=== PATIENT | male | born 1970 | race Caucasian/White ===

== ENCOUNTER 2018-07-15 08:46 | Emergency (ER) | payer BC, SELFPAY ==
[2018-07-15 08:47] VITALS: BP 138/91; PULSE 89; RESP 18; TEMP 36.6; O2SAT 96; BMI 36.6
--- NOTE | 2018-07-15 08:55 | RAD_ITS ---
STUDY: X-RAY - LEFT KNEE REASON FOR EXAM: Male, 48 years old. Redness, swelling TECHNIQUE: 4 view(s) of the knee. COMPARISON: None. FINDINGS: Normal visualized distal femur. Normal visualized proximal tibia and fibula. Normal proximal tibiofibular articulation. Degenerative spurring and slight narrowing at the medial femorotibial compartment. Degenerative spurring at the lateral femorotibial compartment. Mild degenerative spurring at the patellofemoral articulation. Prepatellar and infrapatellar subcutaneous edema. RAD/Knee 4 or More Views IMPRESSION: Anterior subcutaneous edema. Degenerative changes of the knee. Electronically Signed: Suleiman Valenzuela DO at 9:36 EST Tel [phone], Service support ,
[2018-07-15 08:57] VITALS: BP 138/91; PULSE 89; RESP 16; TEMP 36.7; O2SAT 96
--- NOTE | 2018-07-15 08:57 | ED.VISSUMM ---
- ER Visit Summary Date of Service: 07/15/18 Chief Complaint: Left knee pain and swelling History of Present Illness: The patient is a 48 M patient presents with left knee pain and swelling. He was working yesterday when he crouched and then felt pain on the left knee. He denies hitting it or any trauma to the area. He denies sliding or moving on the patella. The pain got worse throughout the night and was worse this morning. He tried Aleve yesterday without any relief. He denies any history of any knee surgeries. This pain is worse with movement. He denies any fevers. Physical Examination: Vital signs reviewed. Left knee exam reveals diffuse swelling of the left knee. It is mildly erythematous and warm to touch. There is no pain with small arc range of motion. He has tenderness diffusely over the patellar area. He has 2+ DP pulses. Test Results: Knee x-ray shows subcutaneous edema with degenerative changes. There is no large effusion Emergency Department Course and Treatment: I feel the patient likely has a prepatellar bursitis. He has no large joint effusion. He has no pain with small arc range of motion. I do not feel that this is a septic arthritis. The patient will be treated with Keflex and naproxen for home. He will ice judiciously. He will follow-up with his PCP Treatment Plan: [] Disposition: Discharge Impression: Left prepatellar bursitis This note was generated with [employer] dictation software. It may contain incorrect words, spelling, and punctuation that were not noted in review of the chart prior to signing ED Disposition - Plan for ED Patient: Referrals: Ayush Paz MD [Primary Care Provider] -
[2018-07-15] MEDS: HYDROcodone Bitartrate/Apap 5/325 Tablet PO (09:01)
--- NOTE | 2018-07-15 09:42 | ED.DEP ---
ED Disposition - Plan for ED Patient: Disposition: Home or Assisted Living Instructions: ED Bursitis Prescriptions: Cephalexin [Keflex] 500 mg PO Q6 #40 cap Naproxen [Naprosyn] 500 mg PO BID PRN #20 tab Referrals: Ayush Paz MD [Primary Care Provider] -
[2018-07-15 09:52] VITALS: BP 135/78; PULSE 80; RESP 16; O2SAT 98
== END 2018-07-15 09:58 | disposition home or self-care (01) ==
PROVIDERS: Emergency Provider Emergency Medicine; Family Provider Family Medicine; PCP Family Medicine
DX: M70.42 Prepatellar bursitis, left knee (principal); Y93.9 Activity, unspecified; I10 Essential (primary) hypertension; Z79.899 Other long term (current) drug therapy
CPT/HCPCS: 73564; 99283

== ENCOUNTER 2018-07-18 15:39 | Inpatient (IN) | payer BC, SELFPAY ==
[2018-07-18 15:40] VITALS: BP 136/85; PULSE 97; RESP 18; TEMP 37.1; O2SAT 97; BMI 36.6
--- NOTE | 2018-07-18 16:18 | ED.VISSUMM ---
- ER Visit Summary Date of Service: 07/18/18 Chief Complaint: Right knee redness and swelling History of Present Illness: The patient is a 48 M history of hypertension. Not diabetic. 4-day history of right knee redness and swelling. Was seen in the ER started on Keflex on Tuesday. He states is been taken it but is getting worse in spite of antibiotic therapy. Subjectively has had fever and chills but no documented temperature. He is able to bend his left knee but not complete flexion due to the amount of swelling. He is never had left knee surgery. He has had fluid on his knee before. He has had cellulitis in the left lower leg before. Physical Examination: Middle-aged male no acute distress vital signs stable afebrile. HEENT exam unremarkable. Neck nontender no lymphadenopathy. Lungs clear to auscultation bilaterally. Heart regular rate and rhythm no murmur soft and nontender. Extremities moves all 4. He has large swelling, redness and warmth to the left anterior knee. Amount of swelling. No significant pain. He has full extension. Distally he has some redness on the proximal lower leg. DP pulses intact. Left foot is neurovascular intact with normal flexion-extension touch sensation and motor strength. The left inguinal area there is no lymphadenopathy. There is no streaking up into the thigh. Neurologically is awake alert with no focal motor or sensory deficits. Test Results: Patient had a prior left knee x-ray which showed degenerative changes and edema. CBC normal with a white count of 9. No bands. BMP normal. Emergency Department Course and Treatment: Blood cultures obtained. Started on IV Zosyn and bank. Patient has failed outpatient therapy with Keflex. I will speak to the hospitalist about admission. Treatment Plan: Patient started on IV vancomycin and Zosyn. I have already spoken to both the orthopedic physician on-call and the hospitalist. Hospitalist will come down to admit the patient. Disposition: Admission Impression: Acute left knee cellulitis Failed outpatient antibiotic therapy This note was generated with [employer] dictation software. It may contain incorrect words, spelling, and punctuation that were not noted in review of the chart prior to signing ED Disposition - Plan for ED Patient: Referrals: Ayush Paz MD [Primary Care Provider] -
--- NOTE | 2018-07-18 16:24 | ED.DCSUM_ITS ---
- ER Visit Summary Date of Service: 07/18/18 Chief Complaint: Right knee redness and swelling History of Present Illness: The patient is a 48 M history of hypertension. Not diabetic. 4-day history of right knee redness and swelling. Was seen in the ER started on Keflex on Tuesday. He states is been taken it but is getting worse in spite of antibiotic therapy. Subjectively has had fever and chills but no documented temperature. He is able to bend his left knee but not complete flexion due to the amount of swelling. He is never had left knee surgery. He has had fluid on his knee before. He has had cellulitis in the left lower leg before. Physical Examination: Middle-aged male no acute distress vital signs stable afebrile. HEENT exam unremarkable. Neck nontender no lymphadenopathy. Lungs clear to auscultation bilaterally. Heart regular rate and rhythm no murmur soft and nontender. Extremities moves all 4. He has large swelling, redness and warmth to the left anterior knee. Amount of swelling. No significant pain. He has full extension. Distally he has some redness on the proximal lower leg. DP pulses intact. Left foot is neurovascular intact with normal flexion-extension touch sensation and motor strength. The left inguinal area there is no lymph adenopathy. There is no streaking up into the thigh. Neurologically is awake alert with no focal motor or sensory deficits. Test Results: Patient had a prior left knee x-ray which showed degenerative changes and edema. CBC normal with a white count of 9. No bands. BMP normal. Emergency Department Course and Treatment: Blood cultures obtained. Started on IV Zosyn and bank. Patient has failed outpatient therapy with Keflex. I will speak to the hospitalist about admission. Treatment Plan: Patient started on IV vancomycin and Zosyn. I have already spoken to both the orthopedic physician on-call and the hospitalist. Hospitalist will come down to admit the patient. Disposition: Admission Impression: Acute left knee cellulitis Failed outpatient antibiotic therapy This note was generated with [employer] dictation software. It may contain incorrect words, spelling, and punctuation that were not noted in review of the chart prior to signing ED Disposition - Plan for ED Patient: Referrals: Ayush Paz MD [Primary Care Provider] -
[2018-07-18 17:00] VITALS: BP 137/91; PULSE 79; RESP 16; TEMP 36.8; O2SAT 98
[2018-07-18 17:16] LABS: Absolute Lymphocyte Count 0.87 X10^3/ul (0.83-4.51); Absolute Neutrophil Count 7.6 X10^3/uL (2.0-7.7); Basophil# 0.03 X10^3/uL; Basophil% 0.3 % (0-1); Eosinophil# 0.19 X10^3/uL; Hematocrit 40.7 % (40-54); Hemoglobin 13.5 g/dl (13.0-16.5); Lymphocyte # 0.87 X10^3/ul (4.0); Lymphocyte % 9.1 % (19-41); Mean Corp Hgb Conc 33.2 g/gl (32-36); Mean Corpuscular Hgb 29.8 pg (27.0-32.0); Mean Corpuscular Volume 89.8 fL (80-94); Mean Platelet Vol. 8.7 fl (6.2-12.0); Monocyte# 0.84 X10^3/uL; Monocyte% 8.8 % (0-10); Neutrophil # 7.58 X10^3/uL (2.7-7.7); Neutrophil % 79.3 % (47-70); Platelet Count 202 K/mm3 (150-450); RBC Distribution Width CV 12.5 % (11.6-14.6); RBC Distribution Width SD 40.7 fl (35.1-43.9); Red Blood Count 4.53 M/mm3 (4.6-6.2); White Blood Count 9.6 K/mm3 (4.4-11.0)
[2018-07-18 17:18] LABS: POSITIVE COUNT NO; POSITIVE DIFFERENTIAL NO; POSITIVE MORPHOLOGY NO
[2018-07-18 17:27] LABS: Anion Gap 11 (5-15); BUN 16 mg/dL (7-18); BUN/Creat Ratio 17.4 RATIO (10-20); Calcium,Total 8.9 mg/dL (8.5-10.1); Chloride 102 mmol/L (98-107); Creatinine, Serum 0.92 mg/dL (0.70-1.30); EST Glomerular Filtration Rate 93 mL/min (>60); Est Glom Filt Rate - Afr Amer 112 mL/min (>60); Estimated Creatinine Clearance 99.18 ml/min; Glucose 99 mg/dL (74-106); Potassium 3.5 mmol/L (3.5-5.1); Sodium Level 140 mmol/L (136-145)
--- NOTE | 2018-07-18 18:37 | HP.PCM_ITS ---
<Ramakrishna Rincon - Last Filed: 07/18/18 18:31> Problem List (1) Bursitis, knee Status: Acute (2) Cellulitis Status: Acute (3) Obesity Status: Acute History of Present Illness Date of Admission: 07/18/18 Chief Complaint: left knee swelling The patient is a 48 year old M with pmhx of prior LLE cellulitis, obesity, HTN, who presented to the ER with c/o left knee swelling. This began on Tuesday, spontaneously. He denies any trauma. He had increased swelling, erythema, pain in his left knee. He presented to the emergency room on Tuesday had a knee x- ray that demonstrated subcutaneous edema, he was placed on Keflex and discharged home. The swelling has worsened at home with increased pain redness. The erythema has started spreading proximally and distally from his knee. There are no open areas and no drainage. He has noted some chills at home. Currently in the emergency room without fever, no leukocytosis. He has no numbness or tin gling in the affected extremity. He is able to ambulate without difficulty. He does report that he has had cellulitis in this leg prior-he does not know what type of bacteria he had. Orthopedics, Dr. Haji, was called by the emergency room physicians. [] Past Medical History Allergies adhesive tape Allergy (Verified 07/18/18 15:42) Rash lisinopril Adverse Reaction (Verified 07/18/18 15:42) Other Home Medications: Ambulatory Orders Medication Instructions Recorded Losartan/Hydrochlorothiazide 1 tablet PO DAILY 05/17/17 [Losartan-Hctz 50-12.5 mg Tab] Naproxen [Naprosyn] 500 mg PO BID PRN #20 tab 07/15/18 Cephalexin [Keflex] 500 mg PO 4X/DAY 07/18/18 Surgical History: - - sinus polypectomy Psychiatric History: No pertinent psych hx Lives: Spouse/ Significant Other Smoking Status: Never smoker Tobacco Use: Non-smoker Alcohol: Rare Drugs: None - *Family History Maternal History Items: Diabetes Paternal History Items: Cancer, Diabetes Review of Systems Constitutional: Reports: Chills. Denies: Fever, Weight Change HEENT: Denies: Head Aches, Sinus Congestion, Sinus Drainage Cardiovascular: Denies: Chest Pain, Palpitations Respiratory: Denies: Cough, Shortness of breath at rest, Sputum production Gastrointestinal: Denies: Abdominal Pain, Nausea, Vomiting Genitourinary: Denies: Dysuria Musculoskeletal: Reports: Joint swelling, Joint Tenderness. Denies: Joint Pain Skin: Reports: Rash. Denies: Wounds Neurological: Denies: Numbness, Tingling, Focal weakness Psychiatric: Denies: Anxiety, Depression, Homicidal Ideations, Suicidal Ideations Hematologic/ Lymphatic: Denies: Easy Bruising, Easy Bleeding VTE Information - Inpt Only VTE Present on Admission: No VTE Mechan Device Prophylaxis: None VTE Pharm Prophylaxis ordered?: Yes Patient Problems: Active and Suspected Problems Bursitis, knee (Acute) Cellulitis (Acute) Obesity (Acute) Left knee cellulitis (Acute) - Physical Exam General: Alert, Oriented x3, Cooperative HEENT: Atraumatic, PERRLA, EOMI, Normocephalic Neck: Supple, No JVD, Negative Carotid Bruits Lungs: Clear to auscultation, Normal air movement Cardiovascular: Regular rate, No murmurs Abdomen: Bowel Sounds Present, Soft, Non Tender Extremities: No edema, Capillary Refill Less than 3 Seconds Skin: No breakdown, Rash Present Musculoskeletal: - - Left knee swollen, tender, erythematous, with cellulitic changes spreading proximally and distally from the knee. No lymphangitis noted at this time. Neurological: Cranial nerves II-XII grossly intact Psych/Mental Status: Normal Affect, Appropriate, Alert and oriented to time, place, person, mood and affect Vital Signs Temp Pulse Resp BP Pulse Ox 98.3 F 79 16 137/91 H 98 07/18/18 17:00 07/18/18 17:00 07/18/18 17:00 07/18/18 17:00 07/18/18 17:00 Oxygen Delivery Method Room Air Weight: 255 lb Body Mass Index (BMI) 36.6 Laboratory Tests Past 24 Hrs 07/18/18 07/18/18 16:59 16:59 WBC 9.6 RBC 4.53 L Hgb 13.5 Hct 40.7 MCV 89.8 MCH 29.8 MCHC 33.2 RDW 12.5 RDW Differential 40.7 Plt Count 202 MPV 8.7 Immature Gran % (Auto) 0.500 Neut % (Auto) 79.3 H Lymph % (Auto) 9.1 L [place] % (Auto) 8.8 Eos % (Auto) 2.0 Baso % (Auto) 0.3 Absolute Neuts (auto) 7.6 Absolute Lymphs (auto) 0.87 Total Counted Not Reportable Sodium 140 Potassium 3.5 Chloride 102 Carbon Dioxide 27.0 Anion Gap 11 BUN 16 Creatinine 0.92 Estim Creat Clear Calc 99.18 Est GFR (MDRD) Af Amer 112 Est GFR (MDRD) Non-Af 93 BUN/Creatinine Ratio 17.4 Glucose 99 Calcium 8.9 Assessment/Plan All Active Problems Bursitis, knee (Acute) Cellulitis (Acute) Obesity (Acute) Left knee cellulitis (Acute) 1. Acute bursitis left knee, concern for underlying septic arthritis, with surrounding cellulitis - failed Keflex. No trauma hx. No open areas or draingage. Given Vanc/Zosyn in ER. Continue Zosyn. MRSA screen. Blood culture pending. Check CRP/ESR. Consult ortho. Demarcated. No fever/leukocytosis. Xray from tuesday with subcutaneous edema. Hx cellulitis ipsilateral LE. 2. HTN - stable 3. Obesity - dietary eval. DVT ppx: lovenox This patient was seen by Ramakrishna Rincon PA-C under the supervision of Dr. Carney. <Freddy Carney - Last Filed: 07/18/18 20:44> Problem List (1) Left knee cellulitis Status: Acute (2) Bursitis, knee Status: Acute (3) Cellulitis Status: Acute (4) Obesity Status: Acute History of Present Illness The patient is a 48 year old M history of left knee soft tissue injury while playing baseball about a year ago but no procedure came to ED with left knee swelling, pain, redness consistent with left knee cellulitis. Patient came to ED on past Tuesday and was sent home on Keflex. This did not improve and got more painful, difficulty in moving left knee. Patient had some chills but denies any fever. [] Past Medical History Allergies adhesive tape Allergy (Verified 07/18/18 15:42) Rash lisinopril Adverse Reaction (Verified 07/18/18 15:42) Other - Physical Exam General: Alert, Oriented x3, Cooperative HEENT: Atraumatic, PERRLA, EOMI, Normocephalic Neck: Supple, No JVD, Negative Carotid Bruits Lungs: Clear to auscultation, Normal air movement Cardiovascular: Regular rate, No murmurs Abdomen: Bowel Sounds Present, Soft, Non Tender Extremities: No edema, Capillary Refill Less than 3 Seconds, Peripheral Pulses Normal Skin: No rashes, No breakdown, Rash Present Musculoskeletal: No Tenderness to Palpation of Joints or Extremities, - - Left knee swollen, tender, erythematous, with cellulitic changes spreading proximally and distally from the knee. No lymphangitis noted at this time. Erythema and swelling is present on both medial and lateral aspect also Lymphatic: No Cervical, Supraclavicular, or Inguinal Adenopathy Neurological: Cranial nerves II-XII grossly intact, Deep Tendon Reflexes 2+/4 and Symmetrical, Neuro grossly intact Psych/Mental Status: Normal Affect, Appropriate Vital Signs Temp Pulse Resp BP Pulse Ox 98.2 F 79 16 130/71 H 96 07/18/18 19:00 07/18/18 19:00 07/18/18 19:00 07/18/18 19:00 07/18/18 19:00 Oxygen Delivery Method Room Air Weight: 254 lb 3.088 oz Body Mass Index (BMI) 36.4 Laboratory Tests Past 24 Hrs 07/18/18 07/18/18 07/18/18 16:59 16:59 16:59 WBC 9.6 RBC 4.53 L Hgb 13.5 Hct 40.7 MCV 89.8 MCH 29.8 MCHC 33.2 RDW 12.5 RDW Differential 40.7 Plt Count 202 MPV 8.7 Immature Gran % (Auto) 0.500 Neut % (Auto) 79.3 H Lymph % (Auto) 9.1 L [place] % (Auto) 8.8 Eos % (Auto) 2.0 Baso % (Auto) 0.3 Absolute Neuts (auto) 7.6 Absolute Lymphs (auto) 0.87 Total Counted Not Reportable ESR 59 H Sodium 140 Potassium 3.5 Chloride 102 Carbon Dioxide 27.0 Anion Gap 11 BUN 16 Creatinine 0.92 Estim Creat Clear Calc 99.18 Est GFR (MDRD) Af Amer 112 Est GFR (MDRD) Non-Af 93 BUN/Creatinine Ratio 17.4 Glucose 99 Calcium 8.9 C-React Prot Ext Range 07/18/18 16:59 WBC RBC Hgb Hct MCV MCH MCHC RDW RDW Differential Plt Count MPV Immature Gran % (Auto) Neut % (Auto) Lymph % (Auto) [place] % (Auto) Eos % (Auto) Baso % (Auto) Absolute Neuts (auto) Absolute Lymphs (auto) Total Counted ESR Sodium Potassium Chloride Carbon Dioxide Anion Gap BUN Creatinine Estim Creat Clear Calc Est GFR (MDRD) Af Amer Est GFR (MDRD) Non-Af BUN/Creatinine Ratio Glucose Calcium C-React Prot Ext Range 150.00 H Assessment/Plan This patient was seen in conjunction with Ramakrishna ROMERO. I have independently interviewed and examined the patient and reviewed pertinent history, examination findings, laboratory and plan of management. I have reviewed the note and agree with the documented findings with the few additional points. In brief, patient is admitted with left knee swelling, pain, redness consistent with left knee cellulitis and prepatellar bursitis. Patient came to ED on past Tuesday and was sent home on Keflex. Patient is able to flex knee about 30 degree. patient has had started on Vanco Zosyn in ER and zosyn is being continued. Recent nasal screen is ordered. Orthopedic surgery consult as it was at a point not safe to do left knee arthrocentesis for concern of getting skin and soft tissue infection inside the joint. Orthopedic surgeon Dr. Haji was consulted by ER physician Dr. Gutierrez. Patient denies history of diabetes mellitus type 2 I have discussed my assessment with Ramakrishna ROMERO and orders have been reviewed. Code Visit Inpatient E&M: 94594 Init Hosp L3
[2018-07-18 19:00] VITALS: BP 130/71; PULSE 79; RESP 16; TEMP 36.8; O2SAT 96
[2018-07-18 19:10] LABS: Erythrocyte Sedimentation Rate 59 mm/hr (0-20)
[2018-07-18 20:35] VITALS: BMI 36.4
[2018-07-18 20:39] VITALS: BMI 36.5
[2018-07-18 20:48] VITALS: BP 126/83; PULSE 78; RESP 16; TEMP 36.6; O2SAT 96
[2018-07-18] MEDS: 0.9% NaCl Peripheral Flush Adult/Peds IV (22:44)
[2018-07-19 01:54] LABS: M R Staph aureus DNA By PCR Negative (Negative); Probe Check PASS; Specimen Processing Control PASS
[2018-07-19 04:05] VITALS: BP 130/78; PULSE 74; RESP 16; TEMP 36.8; O2SAT 95
[2018-07-19 07:14] LABS: Absolute Lymphocyte Count 1.05 X10^3/ul (0.83-4.51); Absolute Neutrophil Count 6.2 X10^3/uL (2.0-7.7); Basophil# 0.03 X10^3/uL; Basophil% 0.4 % (0-1); Eosinophil# 0.28 X10^3/uL; Eosinophils% 3.3 % (0-5); Hematocrit 37.1 % (40-54); Hemoglobin 12.3 g/dl (13.0-16.5); Lymphocyte # 1.05 X10^3/ul (4.0); Lymphocyte % 12.4 % (19-41); Mean Corp Hgb Conc 33.2 g/gl (32-36); Mean Corpuscular Hgb 30.1 pg (27.0-32.0); Mean Corpuscular Volume 90.9 fL (80-94); Mean Platelet Vol. 8.5 fl (6.2-12.0); Monocyte% 9.5 % (0-10); Neutrophil # 6.24 X10^3/uL (2.7-7.7); Neutrophil % 73.9 % (47-70); Platelet Count 185 K/mm3 (150-450); RBC Distribution Width CV 12.6 % (11.6-14.6); RBC Distribution Width SD 41.5 fl (35.1-43.9); Red Blood Count 4.08 M/mm3 (4.6-6.2); White Blood Count 8.4 K/mm3 (4.4-11.0)
[2018-07-19 07:15] LABS: POSITIVE COUNT NO; POSITIVE DIFFERENTIAL NO; POSITIVE MORPHOLOGY NO
[2018-07-19 07:34] LABS: Anion Gap 7 (5-15); BUN 17 mg/dL (7-18); BUN/Creat Ratio 18.6 RATIO (10-20); Calcium,Total 8.1 mg/dL (8.5-10.1); Chloride 103 mmol/L (98-107); Creatinine, Serum 0.92 mg/dL (0.70-1.30); EST Glomerular Filtration Rate 93 mL/min (>60); Est Glom Filt Rate - Afr Amer 113 mL/min (>60); Estimated Creatinine Clearance 99.18 ml/min; Glucose 127 mg/dL (74-106); Potassium 3.3 mmol/L (3.5-5.1); Sodium Level 137 mmol/L (136-145)
[2018-07-19 07:55] VITALS: BP 133/92; PULSE 70; RESP 18; TEMP 36.6; O2SAT 96
[2018-07-19] MEDS: Losartan Potassium 50 MG Tablet PO (07:58)
[2018-07-19] MEDS: hydroCHLOROthiazide 12.5mg 12.5 MG PO (07:58)
--- NOTE | 2018-07-19 08:28 | PCM.PN.HOSP ---
Patient Problems: Active and Suspected Problems Bursitis, knee (Acute) Cellulitis (Acute) Obesity (Acute) Left knee cellulitis (Acute) Subjective: Patient is a 48-year-old gentleman in relatively good health who presented with swelling and erythema involving the area surrounding the left knee. An assessment of cellulitis with suspected infected pretibial bursitis patient admitted to a regular nursing floor broad-spectrum antibiotics initiated per protocol. Objective: GENERAL: cooperative HEENT: Atraumatic; moist oral mucosa EYES; Anicteric, Normal Conjunctiva NECK; supple, normal thyroid, no distended JVD. RESPIRATORY: Diminished to auscultation bilaterally, CARDIOVASCULAR: Regular S1 S2, no audible murmurs GI: soft, non-tender, normoactive bowel sounds, : No Renal angle tenderness; EXTREMITIES: Significant swelling involving the area surrounding the left knee with warmth and erythema extending to mid tibia MUSCULOSKELETAL: Left knee joint swelling NEURO: Awake; no lateralizing signs. SKIN: As described above PSYCH; Normal affect Vitals/I&O's: Vital Signs Temp Pulse Resp BP Pulse Ox 97.9 F 70 18 133/92 H 96 07/19/18 07:55 07/19/18 07:55 07/19/18 07:55 07/19/18 07:55 07/19/18 07:55 Oxygen Delivery Method Room Air Weight: 115.3 kg Body Mass Index (BMI) 36.4 Intake and Output for Last 24 Hours 07/17/18 07/18/18 07/19/18 23:59 23:59 23:59 Intake Total 200 / 200 492 / 492 Output Total 300 / 300 500 / 500 Balance -100 / -100 -8 / -8 Laboratory Results 07/18/18 16:59: WBC 9.6, RBC 4.53 L, Hgb 13.5, Hct 40.7, MCV 89.8, MCH 29.8, MCHC 33.2, RDW 12.5, RDW Differential 40.7, Plt Count 202, MPV 8.7, Immature Gran % (Auto) 0.500, Neut % (Auto) 79.3 H, Lymph % (Auto) 9.1 L, [place] % (Auto) 8.8, Eos % (Auto) 2.0, Baso % (Auto) 0.3, Absolute Neuts (auto) 7.6, Absolute Lymphs (auto) 0.87, Total Counted Not Reportable 07/18/18 16:59: Sodium 140, Potassium 3.5, Chloride 102, Carbon Dioxide 27.0, Anion Gap 11, BUN 16, Creatinine 0.92, Estim Creat Clear Calc 99.18, Est GFR (MDRD) Af Amer 112, Est GFR (MDRD) Non-Af 93, BUN/Creatinine Ratio 17.4, Glucose 99, Calcium 8.9 07/18/18 16:59: ESR 59 H 07/18/18 16:59: C-React Prot Ext Range 150.00 H 07/18/18 23:50: MRSA (PCR) Negative 07/19/18 06:40: WBC 8.4, RBC 4.08 L, Hgb 12.3 L, Hct 37.1 L, MCV 90.9, MCH 30.1, MCHC 33.2, RDW 12.6, RDW Differential 41.5, Plt Count 185, MPV 8.5, Immature Gran % (Auto) 0.500, Neut % (Auto) 73.9 H, Lymph % (Auto) 12.4 L, [place] % (Auto) 9.5, Eos % (Auto) 3.3, Baso % (Auto) 0.4, Absolute Neuts (auto) 6.2, Absolute Lymphs (auto) 1.05, Total Counted Not Reportable 07/19/18 06:40: Sodium 137, Potassium 3.3 L, Chloride 103, Carbon Dioxide 27.0, Anion Gap 7, BUN 17, Creatinine 0.92, Estim Creat Clear Calc 99.18, Est GFR (MDRD) Af Amer 113, Est GFR (MDRD) Non-Af 93, BUN/Creatinine Ratio 18.6, Glucose 127 H, Calcium 8.1 L Current Medications Acetaminophen (Tylenol) 650 mg PO Q6H PRN PRN PRN Reason: PAIN Hydrochlorothiazide () 12.5 mg PO DAILY [facility] Last Admin: 07/19/18 07:58 Dose: 12.5 mg Piperacillin Sod/Tazobactam (Sod 3.375 gm/ Sodium Chloride) 50 mls @ 12.5 mls/hr IV Q8 [facility] Last Admin: 07/19/18 05:33 Dose: 12.5 mls/hr Losartan Potassium (Cozaar) 50 mg PO DAILY [facility] Last Admin: 07/19/18 07:58 Dose: 50 mg Naproxen (Naprosyn) 500 mg PO BID PRN PRN Ondansetron HCl (Zofran Odt) 4 mg PO Q6H PRN PRN PRN Reason: NAUSEA Oxycodone HCl (Oxyir) 5 mg PO Q6H PRN PRN PRN Reason: SEVERE PAIN (6-10/10) Potassium [facility]ide ([facility]Dur) [facility] Sodium Chloride () 5 - 15 ml IV UD PRN PRN Reason: SALINE FLUSH Last Admin: 07/18/18 22:44 Dose: 10 ml Medical Necessity - Tobacco Use Smoking Status: Never smoker Tobacco Use: Secondhand Assessment/Plan All Active Problems Bursitis, knee (Acute) Cellulitis (Acute) Obesity (Acute) Left knee cellulitis (Acute) Patient is a 48-year-old gentleman in relatively good health who presented with swelling and erythema involving the area surrounding the left knee. An assessment of cellulitis with suspected infected prepatellar bursitis patient admitted to a regular nursing floor broad-spectrum antibiotics initiated per protocol. 1. Left lower extremity cellulitis with suspected infected prepatellar bursitis involving the left knee. Patient admitted to regular nursing floor patient was started on Zosyn. Patient's knee was not aspirated since consult has been placed to Dr. Haji with orthopedic surgeon 2. Hypertension-blood pressure controlled, home medications continued with dose adjustment as needed 3. Obesity with BMI of 36.5 weight loss advised 4. DVT prophylaxis SC Lovenox Active Medications Acetaminophen (Tylenol) 650 mg PO Q6H PRN PRN PRN Reason: PAIN Hydrochlorothiazide () 12.5 mg PO DAILY [facility] Last Admin: 07/19/18 07:58 Dose: 12.5 mg Piperacillin Sod/Tazobactam (Sod 3.375 gm/ Sodium Chloride) 50 mls @ 12.5 mls/hr IV Q8 [facility] Last Admin: 07/19/18 05:33 Dose: 12.5 mls/hr Losartan Potassium (Cozaar) 50 mg PO DAILY [facility] Last Admin: 07/19/18 07:58 Dose: 50 mg Naproxen (Naprosyn) 500 mg PO BID PRN PRN Ondansetron HCl (Zofran Odt) 4 mg PO Q6H PRN PRN PRN Reason: NAUSEA Oxycodone HCl (Oxyir) 5 mg PO Q6H PRN PRN PRN Reason: SEVERE PAIN (-02/15) Potassium Chloride (K-Dur) 20 meq PO BIDCM JAMI Sodium Chloride () 5 - 15 ml IV UD PRN PRN Reason: SALINE FLUSH Last Admin: 07/18/18 22:44 Dose: 10 ml Code Visit Inpatient E&M: 46311 Subs Hosp L3
[2018-07-19] MEDS: Enoxaparin 40 MG/0.4 ML Syringe SC (09:48)
--- NOTE | 2018-07-19 10:53 | CASEMGMT ---
RN CM Assessment Presentation: Left Knee swelling, cellulitis. Was treated with Keflex prior to admission with worsening symptoms. Bld cultures pending, ortho consult. Intro role of CM and purpose of RN CM assessment to patient and his . Pt is awake, alert and able to participate in assessment. Demographics/pharmacy/PCP verified. PCP: Brandi Dailey Specialists: Ortho Preferred Pharmacy: [facility] Insurance: [employer] Prescription Benefit: yes LNOK: Birdie Paige, Living Arrangements: Lives in one story home. Pt uses stairs to basement where family room is. States he is independent with ADL/s and has been using crutches if needed. Transportation: Drives, but can also drive if needed. DME: crutches, cane HHC: none DC PLAN: anticipate home on dc with po antibiotics. Ortho to see pt. If dc needs arise (IV antibiotics/wound dressings)- will assist with dc needs. Chanel POMPAN RN ACM
[2018-07-19 13:42] VITALS: BP 134/87; PULSE 67; RESP 18; TEMP 37.2; O2SAT 94
[2018-07-19] MEDS: Naproxen 500 MG Tablet PO (14:31)
[2018-07-19 15:45] VITALS: PULSE 90
--- NOTE | 2018-07-19 19:11 | CON.PCM_ITS ---
Reason for Consult Date of Consultation: 07/19/18 History of Present Illness: The patient is a 48 year old male that developed left anterior knee pain and swelling approximately 2 PM this past Tuesday. He denies any specific injury. He did note a small scrape on his lower leg remote from the swelling and pain. Also has a scratch on his back. Patient symptoms got worse and he went to the emergency room on Tuesday. He was seen and treated by the ER physician. Reportedly he had fluid at the front of his knee and was started on oral antibiotics. X-rays were obtained. He had an appointment to be seen on . However by Tuesday he had increased redness and swelling of the knee. He was told to come back to the emergency room. He was seen and evaluated by the emergency room physician. I was notified. I was told patient had no fluid within his bursa or knee joint. I was told the patient had cellulitis and will be admitted to the hospitalist service. I was not notified of consult. Patient states T-max at home was 99. [place] fevers and chills. Denies nausea vomiting. He does have a history of knee injuries playing football, knee swelling treated in high school with aspirations and injections, prepatellar bursitis treated with aspirations without infection. He has had cellulitis of his lower leg but not of his knee region. [] Past Medical History Allergies adhesive tape Allergy (Verified 07/18/18 15:42) Rash lisinopril Adverse Reaction (Verified 07/18/18 20:42) COUGH Home Medications: Ambulatory Orders Medication Instructions Recorded Losartan/Hydrochlorothiazide 1 tablet PO DAILY 05/17/17 [Losartan-Hctz 50-12.5 mg Tab] Naproxen [Naprosyn] 500 mg PO BID PRN #20 tab 07/15/18 Cephalexin [Keflex] 500 mg PO 4X/DAY 07/18/18 Surgical History: - - sinus polypectomy Psychiatric History: No pertinent psych hx Lives: Spouse/ Significant Other Smoking Status: Never smoker Tobacco Use: Secondhand Alcohol: Rare Drugs: None - *Family History Maternal History Items: Diabetes Paternal History Items: Cancer, Diabetes Review of Systems Constitutional: Reports: Chills HEENT: Denies: Head Aches, Sinus Congestion, Sinus Drainage Cardiovascular: Denies: Chest Pain, Palpitations Gastrointestinal: Denies: Abdominal Pain, Nausea, Vomiting Genitourinary: Denies: Dysuria Musculoskeletal: Reports: Joint stiffness, Joint swelling Neurological: Denies: Numbness, Tingling, Focal weakness Psychiatric: Denies: Anxiety, Depression, Homicidal Ideations, Suicidal Ideations Hematologic/ Lymphatic: Denies: Easy Bruising, Easy Bleeding Patient Problems: Active and Suspected Problems Bursitis, knee (Acute) Cellulitis (Acute) Obesity (Acute) Left knee cellulitis (Acute) Objective: Left knee has significant redness about the anterior aspect. Left knee had no joint effusion. Left knee has obvious fluid within his prepatellar bursa. He states is actually better today than it was yesterday or Tuesday. He is able to do a straight leg easily against gravity. Knee motion is normal. No calf pain or swelling. Negative Homans sign. No hip pain with motion. Mild anterior knee pain with full flexion. X-rays reviewed showing no obvious signs of fracture dislocation Vital signs and laboratory work reviewed - Physical Exam Vital Signs Temp Pulse Resp BP Pulse Ox 99.0 F 90 18 134/87 H 94 07/19/18 13:42 07/19/18 15:45 07/19/18 13:42 07/19/18 13:42 07/19/18 13:42 Oxygen Delivery Method Room Air Weight: 115.3 kg Body Mass Index (BMI) 36.4 Intake and Output for Last 24 Hours 07/17/18 07/18/18 07/19/18 23:59 23:59 23:59 Intake Total 200 / 200 2404 / 2404 Output Total 300 / 300 1700 / 1700 Balance -100 / -100 704 / 704 Laboratory Tests Past 24 Hrs 07/18/18 07/18/18 07/19/18 16:59 23:50 06:40 WBC 8.4 RBC 4.08 L Hgb 12.3 L Hct 37.1 L MCV 90.9 MCH 30.1 MCHC 33.2 RDW 12.6 RDW Differential 41.5 Plt Count 185 MPV 8.5 Immature Gran % (Auto) 0.500 Neut % (Auto) 73.9 H Lymph % (Auto) 12.4 L Irion % (Auto) 9.5 Eos % (Auto) 3.3 Baso % (Auto) 0.4 Absolute Neuts (auto) 6.2 Absolute Lymphs (auto) 1.05 Total Counted Not Reportable ESR 59 H Sodium Potassium Chloride Carbon Dioxide Anion Gap BUN Creatinine Estim Creat Clear Calc Est GFR (MDRD) Af Amer Est GFR (MDRD) Non-Af BUN/Creatinine Ratio Glucose Calcium MRSA (PCR) Negative 07/19/18 06:40 WBC RBC Hgb Hct MCV MCH MCHC RDW RDW Differential Plt Count MPV Immature Gran % (Auto) Neut % (Auto) Lymph % (Auto) Irion % (Auto) Eos % (Auto) Baso % (Auto) Absolute Neuts (auto) Absolute Lymphs (auto) Total Counted ESR Sodium 137 Potassium 3.3 L Chloride 103 Carbon Dioxide 27.0 Anion Gap 7 BUN 17 Creatinine 0.92 Estim Creat Clear Calc 99.18 Est GFR (MDRD) Af Amer 113 Est GFR (MDRD) Non-Af 93 BUN/Creatinine Ratio 18.6 Glucose 127 H Calcium 8.1 L MRSA (PCR) Assessment/Plan All Active Problems Bursitis, knee (Acute) Cellulitis (Acute) Obesity (Acute) Left knee cellulitis (Acute) Left knee prepatellar bursitis, cellulitis: Patient did consent to aspiration of his knee bursa. Risk of the procedure including damage to nerves arteries tendons possibility of seeding deeper infection, risk of needing surgery. He understands that infection can be limb or life-threatening. Procedure: After obtaining appropriate informed consent patient's left knee was prepped with Betadine and alcohol. I aspirated his left knee prepatellar bursa with an 18-gauge needle and obtained about 25 cc of reddish brownish pus thick fluid. Fluid was appropriately sent for Gram stain culture sensitivity cell count and crystal exam. 4 x 4's and Jer wrap applied. After the procedure no palpable effusion at the prepatellar bursa or knee joint was appreciated. We will continue on IV antibiotics per the hospitalist service. I explained we will reevaluate him tomorrow myself or a physician entry level marketing assistant and consider re- aspirating the bursa if more fluid has returned. He understands I am planning to treat this nonoperatively if possible. No guarantees were stated or implied. This note was generated with [employer] software. It may contain incorrect words, spelling, and punctuation that were not noted in checking the note before signing.
[2018-07-19 19:52] LABS: Body Fluid QC Type(s) BF1Q
[2018-07-19 19:53] LABS: Source- Body Fluid SYNOVIAL
[2018-07-19 20:29] VITALS: BP 116/75; PULSE 67; RESP 18; TEMP 36.6; O2SAT 96
[2018-07-20 02:13] VITALS: BP 122/72; PULSE 72; RESP 18; TEMP 36.7; O2SAT 96
[2018-07-20 07:29] VITALS: PULSE 80
[2018-07-20 07:35] VITALS: BP 129/98; PULSE 64; RESP 20; TEMP 36.7; O2SAT 96
[2018-07-20 07:36] LABS: Hematocrit 36.8 % (40-54); Hemoglobin 12.4 g/dl (13.0-16.5); Mean Corp Hgb Conc 33.7 g/gl (32-36); Mean Corpuscular Volume 89.1 fL (80-94); Mean Platelet Vol. 8.3 fl (6.2-12.0); Platelet Count 191 K/mm3 (150-450); RBC Distribution Width CV 12.7 % (11.6-14.6); Red Blood Count 4.13 M/mm3 (4.6-6.2); White Blood Count 8.4 K/mm3 (4.4-11.0)
[2018-07-20 07:38] LABS: Scan Indicated on CBC? Y/N NO
[2018-07-20] MEDS: Losartan Potassium 50 MG Tablet PO (07:42)
[2018-07-20] MEDS: hydroCHLOROthiazide 12.5mg 12.5 MG PO (07:43)
[2018-07-20 08:05] LABS: Anion Gap 5 (5-15); BUN 15 mg/dL (7-18); BUN/Creat Ratio 18.1 RATIO (10-20); Calcium,Total 8.2 mg/dL (8.5-10.1); Chloride 106 mmol/L (98-107); Creatinine, Serum 0.83 mg/dL (0.70-1.30); EST Glomerular Filtration Rate 104 mL/min (>60); Est Glom Filt Rate - Afr Amer 126 mL/min (>60); Estimated Creatinine Clearance 109.94 ml/min; Glucose 99 mg/dL (74-106); Magnesium 2.4 mg/dL (1.6-2.6); Potassium 3.9 mmol/L (3.5-5.1); Sodium Level 138 mmol/L (136-145)
--- NOTE | 2018-07-20 09:29 | PCM.PN.HOSP ---
Patient Problems: Active and Suspected Problems Bursitis, knee (Acute) Cellulitis (Acute) Obesity (Acute) Left knee cellulitis (Acute) Subjective: Patient underwent knee aspiration on 07/19/[address] Sourav Haji. Cell count ordered (results not in computer comment cancelled) however per patient's nurse who was by the bedside when the knee was aspirated the knee aspirate was positive light. Patient remains on broad antibiotics. Cultures pending. Patient placed infectious disease for possible septic arthritis Objective: GENERAL: cooperative HEENT: Atraumatic; moist oral mucosa EYES; Anicteric, Normal Conjunctiva NECK; supple, normal thyroid, no distended JVD. RESPIRATORY: Diminished to auscultation bilaterally, CARDIOVASCULAR: Regular S1 S2, no audible murmurs GI: soft, non-tender, normoactive bowel sounds, : No Renal angle tenderness; EXTREMITIES: No edema no clubbing MUSCULOSKELETAL: Left knee joint swelling NEURO: Awake; no lateralizing signs. SKIN: As described above PSYCH; Normal affect Vitals/I&O's: Vital Signs Temp Pulse Resp BP Pulse Ox 98.0 F 64 20 H 129/98 H 96 07/20/18 07:35 07/20/18 07:35 07/20/18 07:35 07/20/18 07:35 07/20/18 07:35 Oxygen Delivery Method Room Air Weight: 115.3 kg Body Mass Index (BMI) 36.4 Intake and Output for Last 24 Hours 07/18/18 07/19/18 07/20/18 23:59 23:59 23:59 Intake Total 200 / 200 2778 / 2778 90 / 90 Output Total 300 / 300 1700 / 1700 Balance -100 / -100 1078 / 1078 90 / 90 Laboratory Results 07/19/18 19:00: Fluid Source Cancelled, Fluid Color Cancelled, Fluid Appearance Cancelled, Fluid WBC Cancelled, Fluid RBC Cancelled, Fluid Tot Cell Count Cancelled, Fld Polynuclear WBCs # Cancelled, Fld Polynuclear WBCs % Cancelled, Fluid Mononuclear WBCs Cancelled, Fld Mononuclear WBCs % Cancelled, Fluid Neutrophils Cancelled, Fluid Lymphocytes Cancelled, Fluid Monocytes Cancelled, Fluid Plasma Cells Cancelled, Fluid Macrophages Cancelled, Fld Mesothelial Cells Cancelled, Fluid Other Cells Cancelled, Fluid Crystals SEE PATH REV, Fluid Crystal Source SYNOVIAL, Fl Crystal Path Review Will follow, Fl Pathologist Comment Cancelled, Fluid Comment 2 Cancelled 07/20/18 06:55: WBC 8.4, RBC 4.13 L, Hgb 12.4 L, Hct 36.8 L, MCV 89.1, MCH 30.0, MCHC 33.7, RDW 12.7, RDW Differential 41.0, Plt Count 191, MPV 8.3 07/20/18 06:55: Sodium 138, Potassium 3.9, Chloride 106, Carbon Dioxide 27.0, Anion Gap 5, BUN 15, Creatinine 0.83, Estim Creat Clear Calc 109.94, Est GFR (MDRD) Af Amer 126, Est GFR (MDRD) Non-Af 104, BUN/Creatinine Ratio 18.1, Glucose 99, Calcium 8.2 L, Magnesium 2.4 Current Medications Acetaminophen (Tylenol) 650 mg PO Q6H PRN PRN PRN Reason: PAIN Enoxaparin Sodium (Lovenox) 40 mg SC DAILY [facility] Last Admin: 07/19/18 09:48 Dose: 40 mg Hydrochlorothiazide () 12.5 mg PO DAILY [facility] Last Admin: 07/20/18 07:43 Dose: 12.5 mg Piperacillin Sod/Tazobactam (Sod 3.375 gm/ Sodium Chloride) 50 mls @ 12.5 mls/hr IV Q8 [facility] Last Admin: 07/20/18 05:59 Dose: 12.5 mls/hr Losartan Potassium (Cozaar) 50 mg PO DAILY [facility] Last Admin: 07/20/18 07:42 Dose: 50 mg Naproxen (Naprosyn) 500 mg PO BID PRN PRN Last Admin: 07/19/18 14:31 Dose: 500 mg Ondansetron HCl (Zofran Odt) 4 mg PO Q6H PRN PRN PRN Reason: NAUSEA Oxycodone HCl (Oxyir) 5 mg PO Q6H PRN PRN PRN Reason: SEVERE PAIN (6-10/10) Potassium Chloride (K-Dur) 20 meq PO BIDCM [facility] Last Admin: 07/20/18 07:42 Dose: 20 meq Sodium Chloride () 5 - 15 ml IV UD PRN PRN Reason: SALINE FLUSH Last Admin: 07/18/18 22:44 Dose: 10 ml Medical Necessity - Tobacco Use Smoking Status: Never smoker Tobacco Use: Secondhand Assessment/Plan All Active Problems Bursitis, knee (Acute) Cellulitis (Acute) Obesity (Acute) Left knee cellulitis (Acute) Patient is a 48-year-old gentleman in relatively good health who presented with swelling and erythema involving the area surrounding the left knee. An assessment of cellulitis with suspected infected prepatellar bursitis patient admitted to a regular nursing floor broad-spectrum antibiotics initiated per protocol. 1. Left lower extremity cellulitis with suspected septic left knee joint. Patient admitted to regular nursing floor patient was started on Zosyn added vancomycin in view of the aspirate being positive. Consultation placed to orthopedic surgery who did a knee aspiration on 07/19/2018. Consult was also placed infectious disease. 2. Hypertension-blood pressure controlled, home medications continued with dose adjustment as needed 3. Obesity with BMI of 36.5 weight loss advised 4. DVT prophylaxis SC Lovenox Active Medications Acetaminophen (Tylenol) 650 mg PO Q6H PRN PRN PRN Reason: PAIN Enoxaparin Sodium (Lovenox) 40 mg SC DAILY [facility] Last Admin: 07/19/18 09:48 Dose: 40 mg Hydrochlorothiazide () 12.5 mg PO DAILY [facility] Last Admin: 07/20/18 07:43 Dose: 12.5 mg Piperacillin Sod/Tazobactam (Sod 3.375 gm/ Sodium Chloride) 50 mls @ 12.5 mls/hr IV Q8 [facility] Last Admin: 07/20/18 05:59 Dose: 12.5 mls/hr Losartan Potassium (Cozaar) 50 mg PO DAILY [facility] Last Admin: 07/20/18 07:42 Dose: 50 mg Naproxen (Naprosyn) 500 mg PO BID PRN PRN Last Admin: 07/19/18 14:31 Dose: 500 mg Ondansetron HCl (Zofran Odt) 4 mg PO Q6H PRN PRN PRN Reason: NAUSEA Oxycodone HCl (Oxyir) 5 mg PO Q6H PRN PRN PRN Reason: SEVERE PAIN (6-10/10) Potassium Chloride (K-Dur) 20 meq PO BIDCM [facility] Last Admin: 07/20/18 07:42 Dose: 20 meq Sodium Chloride () 5 - 15 ml IV UD PRN PRN Reason: SALINE FLUSH Last Admin: 07/18/18 22:44 Dose: 10 ml Code Visit Inpatient E&M: 24082 Subs Hosp L2
--- NOTE | 2018-07-20 09:32 | PN_ITS ---
Patient Problems: Active and Suspected Problems Bursitis, knee (Acute) Cellulitis (Acute) Obesity (Acute) Left knee cellulitis (Acute) Subjective: Patient underwent knee aspiration on 07/19/[address] Sourav Haji. Cell count ordered (results not in computer comment cancelled) however per patient's nurse who was by the bedside when the knee was aspirated the knee aspirate was positive light. Patient remains on broad antibiotics. Cultures pending. Patient placed infectious disease for possible septic arthritis Objective: GENERAL: cooperative HEENT: Atraumatic; moist oral mucosa EYES; Anicteric, Normal Conjunctiva NECK; supple, normal thyroid, no distended JVD. RESPIRATORY: Diminished to auscultation bilaterally, CARDIOVASCULAR: Regular S1 S2, no audible murmurs GI: soft, non-tender, normoactive bowel sounds, : No Renal angle tenderness; EXTREMITIES: No edema no clubbing MUSCULOSKELETAL: Left knee joint swelling NEURO: Awake; no lateralizing signs. SKIN: As described above PSYCH; Normal affect Vitals/I&O's: Vital Signs Temp Pulse Resp BP Pulse Ox 98.0 F 64 20 H 129/98 H 96 07/20/18 07:35 07/20/18 07:35 07/20/18 07:35 07/20/18 07:35 07/20/18 07:35 Oxygen Delivery Method Room Air Weight: 115.3 kg Body Mass Index (BMI) 36.4 Intake and Output for Last 24 Hours 07/18/18 07/19/18 07/20/18 23:59 23:59 23:59 Intake Total 200 / 200 2778 / 2778 90 / 90 Output Total 300 / 300 1700 / 1700 Balance -100 / -100 1078 / 1078 90 / 90 Laboratory Results 07/19/18 19:00: Fluid Source Cancelled, Fluid Color Cancelled, Fluid Appearance Cancelled, Fluid WBC Cancelled, Fluid RBC Cancelled, Fluid Tot Cell Count Cancelled, Fld Polynuclear WBCs # Cancelled, Fld Polynuclear WBCs % Cancelled, Fluid Mononuclear WBCs Cancelled, Fld Mononuclear WBCs % Cancelled, Fluid Neutrophils Cancelled, Fluid Lymphocytes Cancelled, Fluid Monocytes Cancelled, Fluid Plasma Cells Cancelled, Fluid Macrophages Cancelled, Fld Mesothelial Cells Cancelled, Fluid Other Cells Cancelled, Fluid Crystals SEE PATH REV, Fluid Crystal Source SYNOVIAL, Fl Crystal Path Review Will follow, Fl Pathologist Comment Cancelled, Fluid Comment 2 Cancelled 07/20/18 06:55: WBC 8.4, RBC 4.13 L, Hgb 12.4 L, Hct 36.8 L, MCV 89.1, MCH 30.0, MCHC 33.7, RDW 12.7, RDW Differential 41.0, Plt Count 191, MPV 8.3 07/20/18 06:55: Sodium 138, Potassium 3.9, Chloride 106, Carbon Dioxide 27.0, Anion Gap 5, BUN 15, Creatinine 0.83, Estim Creat Clear Calc 109.94, Est GFR (MDRD) Af Amer 126, Est GFR (MDRD) Non-Af 104, BUN/Creatinine Ratio 18.1, Glucose 99, Calcium 8.2 L, Magnesium 2.4 Current Medications Acetaminophen (Tylenol) 650 mg PO Q6H PRN PRN PRN Reason: PAIN Enoxaparin Sodium (Lovenox) 40 mg SC DAILY [facility] Last Admin: 07/19/18 09:48 Dose: 40 mg Hydrochlorothiazide () 12.5 mg PO DAILY [facility] Last Admin: 07/20/18 07:43 Dose: 12.5 mg Piperacillin Sod/Tazobactam (Sod 3.375 gm/ Sodium Chloride) 50 mls @ 12.5 mls/hr IV Q8 [facility] Last Admin: 07/20/18 05:59 Dose: 12.5 mls/hr Losartan Potassium (Cozaar) 50 mg PO DAILY [facility] Last Admin: 07/20/18 07:42 Dose: 50 mg Naproxen (Naprosyn) 500 mg PO BID PRN PRN Last Admin: 07/19/18 14:31 Dose: 500 mg Ondansetron HCl (Zofran Odt) 4 mg PO Q6H PRN PRN PRN Reason: NAUSEA Oxycodone HCl (Oxyir) 5 mg PO Q6H PRN PRN PRN Reason: SEVERE PAIN (6-10/10) Potassium Chloride (K-Dur) 20 meq PO BIDCM [facility] Last Admin: 07/20/18 07:42 Dose: 20 meq Sodium Chloride () 5 - 15 ml IV UD PRN PRN Reason: SALINE FLUSH Last Admin: 07/18/18 22:44 Dose: 10 ml Medical Necessity - Tobacco Use Smoking Status: Never smoker Tobacco Use: Secondhand Assessment/Plan All Active Problems Bursitis, knee (Acute) Cellulitis (Acute) Obesity (Acute) Left knee cellulitis (Acute) Patient is a 48-year-old gentleman in relatively good health who presented with swelling and erythema involving the area surrounding the left knee. An assessment of cellulitis with suspected infected prepatellar bursitis patient admitted to a regular nursing floor broad-spectrum antibiotics initiated per protocol. 1. Left lower extremity cellulitis with suspected septic left knee joint. Patient admitted to regular nursing floor patient was started on Zosyn added vancomycin in view of the aspirate being positive. Consultation placed to orthopedic surgery who did a knee aspiration on 07/19/2018. Consult was also placed infectious disease. 2. Hypertension-blood pressure controlled, home medications continued with dose adjustment as needed 3. Obesity with BMI of 36.5 weight loss advised 4. DVT prophylaxis SC Lovenox Active Medications Acetaminophen (Tylenol) 650 mg PO Q6H PRN PRN PRN Reason: PAIN Enoxaparin Sodium (Lovenox) 40 mg SC DAILY [facility] Last Admin: 07/19/18 09:48 Dose: 40 mg Hydrochlorothiazide () 12.5 mg PO DAILY [facility] Last Admin: 07/20/18 07:43 Dose: 12.5 mg Piperacillin Sod/Tazobactam (Sod 3.375 gm/ Sodium Chloride) 50 mls @ 12.5 mls/hr IV Q8 [facility] Last Admin: 07/20/18 05:59 Dose: 12.5 mls/hr Losartan Potassium (Cozaar) 50 mg PO DAILY [facility] Last Admin: 07/20/18 07:42 Dose: 50 mg Naproxen (Naprosyn) 500 mg PO BID PRN PRN Last Admin: 07/19/18 14:31 Dose: 500 mg Ondansetron HCl (Zofran Odt) 4 mg PO Q6H PRN PRN PRN Reason: NAUSEA Oxycodone HCl (Oxyir) 5 mg PO Q6H PRN PRN PRN Reason: SEVERE PAIN (6-10/10) Potassium Chloride (K-Dur) 20 meq PO BIDCM [facility] Last Admin: 07/20/18 07:42 Dose: 20 meq Sodium Chloride () 5 - 15 ml IV UD PRN PRN Reason: SALINE FLUSH Last Admin: 07/18/18 22:44 Dose: 10 ml Code Visit Inpatient E&M: 35976 Subs Hosp L2
--- NOTE | 2018-07-20 10:02 | PCM.RX.CS ---
Consult Pharmacy has been consulted to manage selected antiobiotic: Vancomycin Type of Consult: New start Suspected Infection: Skin/Soft tissue Prior Doses of Antibiotics Received/Current Regimen: 1 Labs: Sodium 138 mmol/L (136-145) 07/20/18 06:55 Potassium 3.9 mmol/L (3.5-5.1) 07/20/18 06:55 Chloride 106 mmol/L (98-107) 07/20/18 06:55 Carbon Dioxide 27.0 mmol/L (21.0-32.0) 07/20/18 06:55 Anion Gap 5 (5-15) 07/20/18 06:55 BUN 15 mg/dL (7-18) 07/20/18 06:55 Creatinine 0.83 mg/dL (0.70-1.30) 07/20/18 06:55 Est GFR (MDRD) Af Amer 126 mL/min (>60) 07/20/18 06:55 Est GFR (MDRD) Non-Af 104 mL/min (>60) 07/20/18 06:55 BUN/Creatinine Ratio 18.1 RATIO (10-20) 07/20/18 06:55 Glucose 99 mg/dL (74-106) 07/20/18 06:55 trough level ordered prior to 4th dose = 07/21/18 @ 2130 Weight used for dosin kg Estimated Creatinine Clearance: 109 Goal Trough: 10-15 mcg/mL - VANCOMYCIN IVPB 1750MG Q12H - TROUGH LEVEL ORDERED PRIOR TO 4TH DOSE Pharmacy Plan for Drug Dosing: Pharmacy Service will continue to monitor and adjust dosing as required.
[2018-07-20] MEDS: Enoxaparin 40 MG/0.4 ML Syringe SC (10:18)
--- NOTE | 2018-07-20 10:34 | PCM.HP.ID ---
Problem List (1) Left knee cellulitis Status: Acute Reason for Consult: knee infection Consulted by: Dr. Cedillo History of Present Illness: The patient is a 48 year old M, last L knee aspiration about a year ago, presented with 4-5 days of progressive L knee pain, swelling, redness. No fever or chills. No trauma to knee. No drainage. Pain was severe with motion, mild at rest. Came to ED, sent home, sx worsened, got admitted, aspiration done by Dr. Haji, started on vanc/zosyn. Redness now much improved. Full ROS performed and neg except as noted above. - Medical History Allergies/Adverse Reactions: Allergies adhesive tape Allergy (Verified 07/18/18 15:42) Rash lisinopril Adverse Reaction (Verified 07/18/18 20:42) COUGH Home Medications: Ambulatory Orders Medication Instructions Recorded Losartan/Hydrochlorothiazide 1 tablet PO DAILY 05/17/17 [Losartan-Hctz 50-12.5 mg Tab] Naproxen [Naprosyn] 500 mg PO BID PRN #20 tab 07/15/18 Cephalexin [Keflex] 500 mg PO 4X/DAY 07/18/18 - Social History SMOKING STATUS:: Never smoker Vital Signs Temp Pulse Resp BP Pulse Ox 98.0 F 64 20 H 129/98 H 96 07/20/18 07:35 07/20/18 07:35 07/20/18 07:35 07/20/18 07:35 07/20/18 07:35 Oxygen Delivery Method Room Air Weight: 115.3 kg Body Mass Index (BMI) 36.4 Laboratory Tests Past 24 Hrs 07/19/18 07/20/18 07/20/18 19:00 06:55 06:55 WBC 8.4 RBC 4.13 L Hgb 12.4 L Hct 36.8 L MCV 89.1 MCH 30.0 MCHC 33.7 RDW 12.7 RDW Differential 41.0 Plt Count 191 MPV 8.3 Sodium 138 Potassium 3.9 Chloride 106 Carbon Dioxide 27.0 Anion Gap 5 BUN 15 Creatinine 0.83 Estim Creat Clear Calc 109.94 Est GFR (MDRD) Af Amer 126 Est GFR (MDRD) Non-Af 104 BUN/Creatinine Ratio 18.1 Glucose 99 Calcium 8.2 L Magnesium 2.4 Fluid Source Cancelled Fluid Color Cancelled Fluid Appearance Cancelled Fluid WBC Cancelled Fluid RBC Cancelled Fluid Tot Cell Count Cancelled Fld Polynuclear WBCs # Cancelled Fld Polynuclear WBCs % Cancelled Fluid Mononuclear WBCs Cancelled Fld Mononuclear WBCs % Cancelled Fluid Neutrophils Cancelled Fluid Lymphocytes Cancelled Fluid Monocytes Cancelled Fluid Plasma Cells Cancelled Fluid Macrophages Cancelled Fld Mesothelial Cells Cancelled Fluid Other Cells Cancelled Fluid Crystals SEE PATH REV Fluid Crystal Source SYNOVIAL Fl Crystal Path Review Will follow Fl Pathologist Comment Cancelled Fluid Comment 2 Cancelled - Other Studies Radiology: [] reviewed Other Studies: [] Route of nutrition/ use of supplements: [] Nutritional Intake: [] IV Site: [] Benson Catheter: [] - Physical Exam General: Alert, Oriented x3, Cooperative, No apparent distress HEENT: Atraumatic, PERRLA, EOMI Neck: Supple, No Nodes Lungs: Clear to auscultation, Normal air movement Cardiovascular: Regular rate, Regular Rhythm, No murmurs Abdomen: Soft, Non Tender, Non-Distended Extremities: No edema Skin: - - L knee wrapped, surrounding erythema much improved IV Site: Peripheral, without redness Neurological: Cranial nerves II-XII grossly intact - Assessment/Plan Antibiotics: [] Assessment/Plan: [] Active and Suspected Problems Bursitis, knee (Acute) Cellulitis (Acute) Obesity (Acute) Left knee cellulitis (Acute) L knee concern for septic arthritis - aspiration done, Dr. Haji following. Fluid clotted and most of testing unable to be done. Cx pending. Low suspicion for Pseudomonas or resistant GNRs, will narrow abx to vanc/ceftriaxone. Will follow, thank you.
[2018-07-20] MEDS: 0.9% NaCl Peripheral Flush Adult/Peds IV ×2 (11:19→13:54)
[2018-07-20] MEDS: Naproxen 500 MG Tablet PO (13:54)
--- NOTE | 2018-07-20 14:00 | RAD_ITS ---
STUDY: X-RAY - ABDOMEN/PELVIS REASON FOR EXAM: Male, 48 years old. Small bowel obstruction. TECHNIQUE: Two AP upright views of the abdomen and pelvis. COMPARISON: CT abdomen pelvis without contrast May 17, 2017 FINDINGS: Normal visualized lung bases. There is an unremarkable bowel gas pattern that includes undigested material in the stomach. There is no demonstrated free abdominal air. The visualized liver, spleen and kidneys are grossly normal in size and morphology. Normal soft tissue structures. There are diffuse degenerative changes of the visualized spine, as well as a grossly stable mid to lower thoracic S-shaped scoliosis. Mild lateral wedging of the T6-T8 vertebra noted. RAD/Abd Decub and/or Erect(Portabl IMPRESSION: 1. Nonspecific bowel gas pattern. No free gas. 2. Multilevel degenerative changes of the spine as well as S-shaped thoracic scoliosis grossly unchanged. Electronically Signed: Noel Dewey MD at 14:36 EDT , Service support ,
[2018-07-20 14:08] LABS: Pathologist Review Reviewed
[2018-07-20 14:36] VITALS: BP 127/85; PULSE 95; RESP 16; TEMP 36.6; O2SAT 95
--- NOTE | 2018-07-20 19:51 | PCM.PN.ORT ---
Patient Problems: Active and Suspected Problems Bursitis, knee (Acute) Cellulitis (Acute) Obesity (Acute) Left knee cellulitis (Acute) Subjective: Patient states his left knee is feeling some better. Some tenderness. He feels the redness is resolving. Denies fever or chills. Objective: Left knee continues to have some redness and swelling at his prepatellar bursa. No signs of knee effusion. No signs of knee joint infection. Knee motion is 0-120 degrees. Good straight leg raise against gravity without pain. No calf pain. Knee bursal fluid is now just laterally. Much less than yesterday. Signs and laboratory work reviewed Consult/notes from hospitalist and infectious disease service reviewed. I disagree with their assessment of suspected septic knee joint. I feel this is a septic prepatellar bursa, not an infected knee joint - Physical Exam Vital Signs Temp Pulse Resp BP Pulse Ox 97.8 F 95 16 127/85 H 95 07/20/18 14:36 07/20/18 14:36 07/20/18 14:36 07/20/18 14:36 07/20/18 14:36 Oxygen Delivery Method Room Air Weight: 115.3 kg Body Mass Index (BMI) 36.4 Intake and Output for Last 24 Hours 07/18/18 07/19/18 07/20/18 23:59 23:59 23:59 Intake Total 200 / 200 2778 / 2778 90 / 90 Output Total 300 / 300 1700 / 1700 Balance -100 / -100 1078 / 1078 90 / 90 Microbiology Past 72 Hours 07/19/18 19:00 Gram Stain - Preliminary Fluid - Synovial (joint) Body Fluid Culture - Preliminary Staphylococcus aureus Laboratory Tests Past 24 Hrs 07/19/18 07/20/18 07/20/18 19:00 06:55 06:55 WBC 8.4 RBC 4.13 L Hgb 12.4 L Hct 36.8 L MCV 89.1 MCH 30.0 MCHC 33.7 RDW 12.7 RDW Differential 41.0 Plt Count 191 MPV 8.3 Sodium 138 Potassium 3.9 Chloride 106 Carbon Dioxide 27.0 Anion Gap 5 BUN 15 Creatinine 0.83 Estim Creat Clear Calc 109.94 Est GFR (MDRD) Af Amer 126 Est GFR (MDRD) Non-Af 104 BUN/Creatinine Ratio 18.1 Glucose 99 Calcium 8.2 L Magnesium 2.4 Fluid Source Cancelled Fluid Color Cancelled Fluid Appearance Cancelled Fluid WBC Cancelled Fluid RBC Cancelled Fluid Tot Cell Count Cancelled Fld Polynuclear WBCs # Cancelled Fld Polynuclear WBCs % Cancelled Fluid Mononuclear WBCs Cancelled Fld Mononuclear WBCs % Cancelled Fluid Neutrophils Cancelled Fluid Lymphocytes Cancelled Fluid Monocytes Cancelled Fluid Plasma Cells Cancelled Fluid Macrophages Cancelled Fld Mesothelial Cells Cancelled Fluid Other Cells Cancelled Fluid Crystals SEE PATH REV Fluid Crystal Source SYNOVIAL Fl Crystal Path Review Reviewed Fl Pathologist Comment Cancelled Fluid Comment 2 Cancelled Medical Necessity - Tobacco Use Smoking Status: Never smoker Tobacco Use: Secondhand Assessment/Plan All Active Problems Bursitis, knee (Acute) Cellulitis (Acute) Obesity (Acute) Left knee cellulitis (Acute) Left knee septic prepatellar bursitis, staph aureus , cellulitis: Patient did consent to aspiration of his knee bursa. Risk of the procedure including damage to nerves arteries tendons possibility of seeding deeper infection, risk of needing surgery. He understands that infection can be limb or life-threatening. No signs of septic knee joint. Procedure: After obtaining appropriate informed consent patient's left knee was prepped with Betadine and alcohol. I aspirated his left knee prepatellar bursa with an 18-gauge needle and obtained about 9 cc of reddish brownish pus thick fluid. Fluid was appropriately sent for Gram stain culture sensitivity cell count and crystal exam. 4 x 4's and Jer wrap applied. After the procedure no palpable effusion at the prepatellar bursa or knee joint was appreciated. We will continue on IV antibiotics per the hospitalist service. I explained we will reevaluate him tomorrow myself or a physician machine operator assistant and consider re-aspirating the bursa if more fluid has returned. He understands I am planning to treat this nonoperatively if possible. No guarantees were stated or implied. This note was generated with [employer] dictation software. It may contain incorrect words, spelling, and punctuation that were not noted in checking the note before signing.
[2018-07-20 19:58] VITALS: BP 129/79; PULSE 74; RESP 18; TEMP 36.7; O2SAT 94
[2018-07-21 02:08] VITALS: BP 160/97; PULSE 73; RESP 16; TEMP 36.4; O2SAT 96
[2018-07-21 06:24] LABS: Hematocrit 37.4 % (40-54); Hemoglobin 12.3 g/dl (13.0-16.5); Mean Corp Hgb Conc 32.9 g/gl (32-36); Mean Corpuscular Hgb 29.9 pg (27.0-32.0); Mean Platelet Vol. 8.5 fl (6.2-12.0); Platelet Count 223 K/mm3 (150-450); RBC Distribution Width CV 12.3 % (11.6-14.6); RBC Distribution Width SD 40.5 fl (35.1-43.9); Red Blood Count 4.11 M/mm3 (4.6-6.2)
[2018-07-21 06:25] LABS: Anion Gap 5 (5-15); BUN 16 mg/dL (7-18); BUN/Creat Ratio 19.9 RATIO (10-20); Chloride 108 mmol/L (98-107); Creatinine, Serum 0.81 mg/dL (0.70-1.30); EST Glomerular Filtration Rate 108 mL/min (>60); Est Glom Filt Rate - Afr Amer 130 mL/min (>60); Estimated Creatinine Clearance 112.65 ml/min; Glucose 101 mg/dL (74-106); Scan Indicated on CBC? Y/N NO; Sodium Level 141 mmol/L (136-145)
[2018-07-21 08:30] VITALS: BP 143/101; PULSE 66; RESP 16; TEMP 37.1; O2SAT 98
[2018-07-21] MEDS: Losartan Potassium 50 MG Tablet PO (08:36)
[2018-07-21] MEDS: hydroCHLOROthiazide 12.5mg 12.5 MG PO (08:36)
[2018-07-21] MEDS: Enoxaparin 40 MG/0.4 ML Syringe SC (09:56)
--- NOTE | 2018-07-21 12:02 | PCM.PN.HOSP ---
Patient Problems: Active and Suspected Problems Bursitis, knee (Acute) Cellulitis (Acute) Obesity (Acute) Left knee cellulitis (Acute) Subjective: Patient seen and examined. Was admitted with left knee swelling and to be managed for possible septic arthritis. He had aspiration of the knee done on 07/19/2018. He is currently on broad-spectrum antibiotics. Patient has no complaints today. Swelling has improved significantly states pain is well controlled. He denies any fever chills, palpitations or dizziness, chest pain, abdominal pain, diarrhea vomiting. Review of systems otherwise negative. Labs and vitals reviewed. Vitals/I&O's: Vital Signs Temp Pulse Resp BP Pulse Ox 98.8 F 66 16 143/101 H 98 07/21/18 08:30 07/21/18 08:30 07/21/18 08:30 07/21/18 08:30 07/21/18 08:30 Oxygen Delivery Method Room Air Weight: 254 lb 3.088 oz Body Mass Index (BMI) 36.4 Intake and Output for Last 24 Hours 07/19/18 07/20/18 07/21/18 23:59 23:59 23:59 Intake Total 2778 / 2778 90 / 90 2718 / 2718 Output Total 1700 / 1700 Balance 1078 / 1078 90 / 90 2718 / 2718 General: Alert, Oriented x3, Cooperative, No apparent distress HEENT: Atraumatic, PERRLA, EOMI, Normocephalic Oral: Moist Mucosa Neck: Supple, No JVD, Negative Carotid Bruits Lungs: Clear to auscultation, Normal air movement, No rhonchi, No wheeze, No rales Cardiovascular: Regular rate, Regular Rhythm, Normal S1, Normal S2, No murmurs Abdomen: Bowel Sounds Present, Soft, Non Tender, Non-Distended, No Hepato-splenomegaly Extremities: - - left knee swollen, fluctuant, erythematous, mild differential warmth Skin: No rashes, No breakdown Musculoskeletal: No Tenderness to Palpation of Joints or Extremities Neurological: Cranial nerves II-XII grossly intact, Neuro grossly intact Psych/Mental Status: Normal Affect, Appropriate, Alert and oriented to time, place, person, mood and affect Microbiology Past 72 Hours 07/19/18 19:00 Fluid - Synovial (joint) Gram Stain - Preliminary 07/19/18 19:00 Fluid - Synovial (joint) Body Fluid Culture - Final Staphylococcus aureus Laboratory Results 07/19/18 19:00: Fluid Source Cancelled, Fluid Color Cancelled, Fluid Appearance Cancelled, Fluid WBC Cancelled, Fluid RBC Cancelled, Fluid Tot Cell Count Cancelled, Fld Polynuclear WBCs # Cancelled, Fld Polynuclear WBCs % Cancelled, Fluid Mononuclear WBCs Cancelled, Fld Mononuclear WBCs % Cancelled, Fluid Neutrophils Cancelled, Fluid Lymphocytes Cancelled, Fluid Monocytes Cancelled, Fluid Plasma Cells Cancelled, Fluid Macrophages Cancelled, Fld Mesothelial Cells Cancelled, Fluid Other Cells Cancelled, Fl Crystal Path Review Reviewed, Fl Pathologist Comment Cancelled, Fluid Comment 2 Cancelled 07/21/18 05:35: WBC 8.0, RBC 4.11 L, Hgb 12.3 L, Hct 37.4 L, MCV 91.0, MCH 29.9, MCHC 32.9, RDW 12.3, RDW Differential 40.5, Plt Count 223, MPV 8.5 07/21/18 05:35: Sodium 141, Potassium 4.0, Chloride 108 H, Carbon Dioxide 28.0, Anion Gap 5, BUN 16, Creatinine 0.81, Estim Creat Clear Calc 112.65, Est GFR (MDRD) Af Amer 130, Est GFR (MDRD) Non-Af 108, BUN/Creatinine Ratio 19.9, Glucose 101, Calcium 8.0 L Current Medications Acetaminophen (Tylenol) 650 mg PO Q6H PRN PRN PRN Reason: PAIN Enoxaparin Sodium (Lovenox) 40 mg SC DAILY [facility] Last Admin: 07/21/18 09:56 Dose: 40 mg Hydrochlorothiazide () 12.5 mg PO DAILY [facility] Last Admin: 07/21/18 08:36 Dose: 12.5 mg Cefazolin Sodium 2 gm/ Sodium (Chloride) 110 mls @ 150 mls/hr IV Q8 [facility] Losartan Potassium (Cozaar) 50 mg PO DAILY [facility] Last Admin: 07/21/18 08:36 Dose: 50 mg Naproxen (Naprosyn) 500 mg PO BID PRN PRN Last Admin: 07/20/18 13:54 Dose: 500 mg Ondansetron HCl (Zofran Odt) 4 mg PO Q6H PRN PRN PRN Reason: NAUSEA Oxycodone HCl (Oxyir) 5 mg PO Q6H PRN PRN PRN Reason: SEVERE PAIN (6-10/10) Potassium Chloride (K-Dur) 20 meq PO BIDCM JAMI Last Admin: 07/21/18 08:36 Dose: 20 meq Sodium Chloride () 5 - 15 ml IV UD PRN PRN Reason: SALINE FLUSH Last Admin: 07/20/18 13:54 Dose: 10 ml Medical Necessity - Tobacco Use Smoking Status: Never smoker Tobacco Use: Secondhand Assessment/Plan All Active Problems Bursitis, knee (Acute) Cellulitis (Acute) Obesity (Acute) Left knee cellulitis (Acute) 1. LLE cellulitis with questionable septic arthritis of the knee vs septic prepatellar bursitis was pn IV vancomycin and IV zosyn; now on IV cefazolin orthopedics on board, synovial fluic cultures Saph aureus; anerobic culture pending orthopedics thinks it is more of a septic prepatellar bursa,not infected knee joint ID on board 2. Hypertension Fairly controlled. On hydrochlorothiazide 12.5 mg daily and losartan 50 mg daily. 3. Obesity: BMI is 36.5. Complicates care and recovery. Weight loss advised. DVT prophylaxis: Lovenox Code Visit Inpatient E&M: 14416 Subs Hosp L2
--- NOTE | 2018-07-21 12:08 | PN_ITS ---
Patient Problems: Active and Suspected Problems Bursitis, knee (Acute) Cellulitis (Acute) Obesity (Acute) Left knee cellulitis (Acute) Subjective: Patient seen and examined. Was admitted with left knee swelling and to be managed for possible septic arthritis. He had aspiration of the knee done on 07/19/2018. He is currently on broad-spectrum antibiotics. Patient has no complaints today. Swelling has improved significantly states pain is well controlled. He denies any fever chills, palpitations or dizziness, chest pain, abdominal pain, diarrhea vomiting. Review of systems otherwise negative. Labs and vitals reviewed. Vitals/I&O's: Vital Signs Temp Pulse Resp BP Pulse Ox 98.8 F 66 16 143/101 H 98 07/21/18 08:30 07/21/18 08:30 07/21/18 08:30 07/21/18 08:30 07/21/18 08:30 Oxygen Delivery Method Room Air Weight: 254 lb 3.088 oz Body Mass Index (BMI) 36.4 Intake and Output for Last 24 Hours 07/19/18 07/20/18 07/21/18 23:59 23:59 23:59 Intake Total 2778 / 2778 90 / 90 2718 / 2718 Output Total 1700 / 1700 Balance 1078 / 1078 90 / 90 2718 / 2718 General: Alert, Oriented x3, Cooperative, No apparent distress HEENT: Atraumatic, PERRLA, EOMI, Normocephalic Oral: Moist Mucosa Neck: Supple, No JVD, Negative Carotid Bruits Lungs: Clear to auscultation, Normal air movement, No rhonchi, No wheeze, No rales Cardiovascular: Regular rate, Regular Rhythm, Normal S1, Normal S2, No murmurs Abdomen: Bowel Sounds Present, Soft, Non Tender, Non-Distended, No Hepato- splenomegaly Extremities: - - left knee swollen, fluctuant, erythematous, mild differential warmth Skin: No rashes, No breakdown Musculoskeletal: No Tenderness to Palpation of Joints or Extremities Neurological: Cranial nerves II-XII grossly intact, Neuro grossly intact Psych/Mental Status: Normal Affect, Appropriate, Alert and oriented to time, place, person, mood and affect Microbiology Past 72 Hours 07/19/18 19:00 Fluid - Synovial (joint) Gram Stain - Preliminary 07/19/18 19:00 Fluid - Synovial (joint) Body Fluid Culture - Final Staphylococcus aureus Laboratory Results 07/19/18 19:00: Fluid Source Cancelled, Fluid Color Cancelled, Fluid Appearance Cancelled, Fluid WBC Cancelled, Fluid RBC Cancelled, Fluid Tot Cell Count Cancelled, Fld Polynuclear WBCs # Cancelled, Fld Polynuclear WBCs % Cancelled, Fluid Mononuclear WBCs Cancelled, Fld Mononuclear WBCs % Cancelled, Fluid Neutrophils Cancelled, Fluid Lymphocytes Cancelled, Fluid Monocytes Cancelled, Fluid Plasma Cells Cancelled, Fluid Macrophages Cancelled, Fld Mesothelial Cells Cancelled, Fluid Other Cells Cancelled, Fl Crystal Path Review Reviewed, Fl Pathologist Comment Cancelled, Fluid Comment 2 Cancelled 07/21/18 05:35: WBC 8.0, RBC 4.11 L, Hgb 12.3 L, Hct 37.4 L, MCV 91.0, MCH 29.9, MCHC 32.9, RDW 12.3, RDW Differential 40.5, Plt Count 223, MPV 8.5 07/21/18 05:35: Sodium 141, Potassium 4.0, Chloride 108 H, Carbon Dioxide 28.0, Anion Gap 5, BUN 16, Creatinine 0.81, Estim Creat Clear Calc 112.65, Est GFR (MDRD) Af Amer 130, Est GFR (MDRD) Non-Af 108, BUN/Creatinine Ratio 19.9, Glucose 101, Calcium 8.0 L Current Medications Acetaminophen (Tylenol) 650 mg PO Q6H PRN PRN PRN Reason: PAIN Enoxaparin Sodium (Lovenox) 40 mg SC DAILY [facility] Last Admin: 07/21/18 09:56 Dose: 40 mg Hydrochlorothiazide () 12.5 mg PO DAILY [facility] Last Admin: 07/21/18 08:36 Dose: 12.5 mg Cefazolin Sodium 2 gm/ Sodium (Chloride) 110 mls @ 150 mls/hr IV Q8 [facility] Losartan Potassium (Cozaar) 50 mg PO DAILY [facility] Last Admin: 07/21/18 08:36 Dose: 50 mg Naproxen (Naprosyn) 500 mg PO BID PRN PRN Last Admin: 07/20/18 13:54 Dose: 500 mg Ondansetron HCl (Zofran Odt) 4 mg PO Q6H PRN PRN PRN Reason: NAUSEA Oxycodone HCl (Oxyir) 5 mg PO Q6H PRN PRN PRN Reason: SEVERE PAIN (6-10/10) Potassium Chloride (K-Dur) 20 meq PO BIDCM [facility]AMI Last Admin: 07/21/18 08:36 Dose: 20 meq Sodium Chloride () 5 - 15 ml IV UD PRN PRN Reason: SALINE FLUSH Last Admin: 07/20/18 13:54 Dose: 10 ml Medical Necessity - Tobacco Use Smoking Status: Never smoker Tobacco Use: Secondhand Assessment/Plan All Active Problems Bursitis, knee (Acute) Cellulitis (Acute) Obesity (Acute) Left knee cellulitis (Acute) 1. LLE cellulitis with questionable septic arthritis of the knee vs septic prepatellar bursitis * was pn IV vancomycin and IV zosyn; now on IV cefazolin * orthopedics on board, synovial fluic cultures Saph aureus; anerobic culture pending * orthopedics thinks it is more of a septic prepatellar bursa,not infected knee joint * ID on board * 2. Hypertension * Fairly controlled. * On hydrochlorothiazide 12.5 mg daily and losartan 50 mg daily. * 3. Obesity: BMI is 36.5. Complicates care and recovery. Weight loss advised. DVT prophylaxis: Lovenox Code Visit Inpatient E&M: 60738 Subs Hosp L2
--- NOTE | 2018-07-21 13:27 | PCM.PN.ID ---
Patient Problems: Active and Suspected Problems Bursitis, knee (Acute) Cellulitis (Acute) Obesity (Acute) Left knee cellulitis (Acute) Subjective: Feeling better, able to walk, knee much less red and sore, no fever, no n/v/d with iv abx. - Physical Exam General: Alert, Cooperative, No apparent distress Lungs: Clear to auscultation, Normal air movement Cardiovascular: Regular rate, Regular Rhythm Abdomen: Soft, Non Tender, Non-Distended Extremities: - - L knee mild swelling and redness, minimal pain to palpation. No drainage Vital Signs Temp Pulse Resp BP Pulse Ox 98.8 F 66 16 143/101 H 98 07/21/18 08:30 07/21/18 08:30 07/21/18 08:30 07/21/18 08:30 07/21/18 08:30 Oxygen Delivery Method Room Air Weight: 115.3 kg Body Mass Index (BMI) 36.4 Intake and Output for Last 24 Hours 07/19/18 07/20/18 07/21/18 23:59 23:59 23:59 Intake Total 2778 / 2778 90 / 90 2718 / 2718 Output Total 1700 / 1700 Balance 1078 / 1078 90 / 90 2718 / 2718 Microbiology Past 72 Hours 07/19/18 19:00 Gram Stain - Preliminary Fluid - Synovial (joint) Body Fluid Culture - Final Staphylococcus aureus Laboratory Tests Past 24 Hrs 07/19/18 07/21/18 07/21/18 19:00 05:35 05:35 WBC 8.0 RBC 4.11 L Hgb 12.3 L Hct 37.4 L MCV 91.0 MCH 29.9 MCHC 32.9 RDW 12.3 RDW Differential 40.5 Plt Count 223 MPV 8.5 Sodium 141 Potassium 4.0 Chloride 108 H Carbon Dioxide 28.0 Anion Gap 5 BUN 16 Creatinine 0.81 Estim Creat Clear Calc 112.65 Est GFR (MDRD) Af Amer 130 Est GFR (MDRD) Non-Af 108 BUN/Creatinine Ratio 19.9 Glucose 101 Calcium 8.0 L Fluid Source Cancelled Fluid Color Cancelled Fluid Appearance Cancelled Fluid WBC Cancelled Fluid RBC Cancelled Fluid Tot Cell Count Cancelled Fld Polynuclear WBCs # Cancelled Fld Polynuclear WBCs % Cancelled Fluid Mononuclear WBCs Cancelled Fld Mononuclear WBCs % Cancelled Fluid Neutrophils Cancelled Fluid Lymphocytes Cancelled Fluid Monocytes Cancelled Fluid Plasma Cells Cancelled Fluid Macrophages Cancelled Fld Mesothelial Cells Cancelled Fluid Other Cells Cancelled Fl Crystal Path Review Reviewed Fl Pathologist Comment Cancelled Fluid Comment 2 Cancelled Medical Necessity - Tobacco Use Smoking Status: Never smoker Tobacco Use: Secondhand Route of nutrition/ use of supplements: [] Nutritional Intake: [] IV Site: [] Benson Catheter: [] - Assessment/Plan Antibiotics: [] Assessment/Plan: [] Active and Suspected Problems Bursitis, knee (Acute) Cellulitis (Acute) Obesity (Acute) Left knee cellulitis (Acute) L knee MSSA prepatellar bursitis - aspiration done 07/19, Dr. Haji following. No sign of joint involvement. Cx with MSSA. Narrow vanc/ceftriaxone to cefazolin. Plan will be for him to go home on Duricef 500mg bid for 2 week course. Abx may need to be extended based on clinical progress, but so far he appears to be improving well. Will follow
[2018-07-21] MEDS: Cefazolin 2 GM in 0.9% Normal Saline 100 ML IV ×2 (14:43→21:54)
[2018-07-21 14:45] VITALS: BP 145/98; PULSE 72; RESP 14; TEMP 36.8; O2SAT 97
[2018-07-21] MEDS: 0.9% NaCl Peripheral Flush Adult/Peds IV (14:45)
--- NOTE | 2018-07-21 16:57 | PN.ORTHO_ITS ---
Patient Problems: Active and Suspected Problems Bursitis, knee (Acute) Cellulitis (Acute) Obesity (Acute) Left knee cellulitis (Acute) Subjective: Patient states his knee is feeling better. Denies fever or chills. Hoping for discharge to home soon. He has been up walking in the hallways. He has showered. He has questions about returning to work. Seen with his present Objective: Left knee thigh and leg have less redness and swelling. Small amount of fluid palpable in his left prepatellar bursa inferior laterally. No obvious fluid within his knee joint. Knee motion is 0-100 degrees. No calf pain or swelling. Negative Homans sign. No hip pain with motion. Legs are neurovascular intact. Laboratory work vital signs reviewed. Notes from hospitalist and ID service reviewed - Physical Exam Vital Signs Temp Pulse Resp BP Pulse Ox 98.3 F 72 14 145/98 H 97 07/21/18 14:45 07/21/18 14:45 07/21/18 14:45 07/21/18 14:45 07/21/18 14:45 Oxygen Delivery Method Room Air Weight: 115.3 kg Body Mass Index (BMI) 36.4 Intake and Output for Last 24 Hours 07/19/18 07/20/18 07/21/18 23:59 23:59 23:59 Intake Total 2778 / 2778 90 / 90 2718 / 2718 Output Total 1700 / 1700 Balance 1078 / 1078 90 / 90 2718 / 2718 Microbiology Past 72 Hours 07/19/18 19:00 Gram Stain - Final Fluid - Synovial (joint) Body Fluid Culture - Final Staphylococcus aureus Laboratory Tests Past 24 Hrs 07/21/18 07/21/18 05:35 05:35 WBC 8.0 RBC 4.11 L Hgb 12.3 L Hct 37.4 L MCV 91.0 MCH 29.9 MCHC 32.9 RDW 12.3 RDW Differential 40.5 Plt Count 223 MPV 8.5 Sodium 141 Potassium 4.0 Chloride 108 H Carbon Dioxide 28.0 Anion Gap 5 BUN 16 Creatinine 0.81 Estim Creat Clear Calc 112.65 Est GFR (MDRD) Af Amer 130 Est GFR (MDRD) Non-Af 108 BUN/Creatinine Ratio 19.9 Glucose 101 Calcium 8.0 L Medical Necessity - Tobacco Use Smoking Status: Never smoker Tobacco Use: Secondhand Assessment/Plan All Active Problems Bursitis, knee (Acute) Cellulitis (Acute) Obesity (Acute) Left knee cellulitis (Acute) Left knee septic prepatellar bursitis, staph aureus , cellulitis: Patient did consent to aspiration of his knee bursa. Risk of the procedure including damage to nerves arteries tendons possibility of seeding deeper infection, risk of needing surgery. He understands that infection can be limb or life-threatening. No signs of septic knee joint. Procedure: After obtaining appropriate informed consent patient's left knee was prepped with Betadine and alcohol. I aspirated his left knee prepatellar bursa with an 18-gauge needle and obtained about 6 cc of reddish thin fluid. 4 x 4's and Jer wrap applied. After the procedure no palpable effusion at the prepatellar bursa or knee joint was appreciated. We will continue on IV antibiotics per the hospitalist service. I explained we will reevaluate him tomorrow myself or a physician commercial escrow assistant and consider re- aspirating the bursa if more fluid has returned. Okay for discharge to home on oral antibiotics as outlined by infectious disease service. he understands I am planning to treat this nonoperatively if possible. No guarantees were stated or implied. This note was generated with [employer] dictation software. It may contain incorrect words, spelling, and punctuation that were not noted in checking the note before signing.
[2018-07-21 20:50] VITALS: BP 146/92; PULSE 61; RESP 16; TEMP 36.7; O2SAT 96
[2018-07-21 22:51] LABS: Vancomycin, Trough Level 10.1 ug/mL (5.0-15.0)
[2018-07-22 03:13] VITALS: BP 140/88; PULSE 66; RESP 16; TEMP 37.1; O2SAT 98
[2018-07-22] MEDS: Cefazolin 2 GM in 0.9% Normal Saline 100 ML IV (06:15)
[2018-07-22 07:02] LABS: Absolute Lymphocyte Count 1.77 X10^3/ul (0.83-4.51); Basophil# 0.05 X10^3/uL; Basophil% 0.6 % (0-1); Eosinophil# 0.39 X10^3/uL; Eosinophils% 4.8 % (0-5); Hematocrit 37.6 % (40-54); Hemoglobin 12.5 g/dl (13.0-16.5); Lymphocyte # 1.77 X10^3/ul (4.0); Lymphocyte % 21.8 % (19-41); Mean Corp Hgb Conc 33.2 g/gl (32-36); Mean Corpuscular Hgb 30.4 pg (27.0-32.0); Mean Corpuscular Volume 91.5 fL (80-94); Mean Platelet Vol. 8.4 fl (6.2-12.0); Monocyte% 8.6 % (0-10); Neutrophil # 4.98 X10^3/uL (2.7-7.7); Neutrophil % 61.5 % (47-70); Platelet Count 253 K/mm3 (150-450); RBC Distribution Width CV 12.1 % (11.6-14.6); RBC Distribution Width SD 39.8 fl (35.1-43.9); Red Blood Count 4.11 M/mm3 (4.6-6.2); White Blood Count 8.1 K/mm3 (4.4-11.0)
[2018-07-22 07:04] LABS: POSITIVE COUNT YES; POSITIVE DIFFERENTIAL NO; POSITIVE MORPHOLOGY YES
[2018-07-22] MEDS: hydroCHLOROthiazide 12.5mg 12.5 MG PO (08:04)
[2018-07-22] MEDS: Losartan Potassium 50 MG Tablet PO (08:04)
[2018-07-22] MEDS: Enoxaparin 40 MG/0.4 ML Syringe SC (08:04)
[2018-07-22 08:11] VITALS: BP 143/102; PULSE 62; RESP 18; TEMP 36.3; O2SAT 98
[2018-07-22 08:11] LABS: Anion Gap 3 (5-15); BUN 12 mg/dL (7-18); BUN/Creat Ratio 13.2 RATIO (10-20); Calcium,Total 8.4 mg/dL (8.5-10.1); Chloride 105 mmol/L (98-107); Creatinine, Serum 0.91 mg/dL (0.70-1.30); EST Glomerular Filtration Rate 94 mL/min (>60); Est Glom Filt Rate - Afr Amer 114 mL/min (>60); Estimated Creatinine Clearance 100.27 ml/min; Glucose 93 mg/dL (74-106); Potassium 4.4 mmol/L (3.5-5.1); Sodium Level 139 mmol/L (136-145)
--- NOTE | 2018-07-22 10:31 | DCINST_ITS ---
- Discharge Diagnoses Current Active Problems: Current Active and Chronic Problems Bursitis, knee (Acute) Cellulitis (Acute) Obesity (Acute) Left knee cellulitis (Acute) You will use the following diet at home:: Cardiac Your food should be the consistency of: Regular Your liquids should be the consistency of: Regular/Thin Discharge Activity: Return to Normal Activity Weight Bearing Status: Weight bearing as tolerated Call your doctor if your incision/area has: Continuous Slow Oozing, Increased Pain/ Swelling, Increased Redness Call your doctor if you observe: Fever of 101 or Higher, Uncontrolled pain Instructions: What Is Bursitis? Allergies/Adverse Reactions: Allergies adhesive tape Allergy (Verified 07/18/18 15:42) Rash lisinopril Adverse Reaction (Verified 07/18/18 20:42) COUGH Medications to take at Discharge Losartan/Hydrochlorothiazide [Losartan-Hctz 50-12.5 mg Tab] 1 tablet PO DAILY 05/17/17 Naproxen [Naprosyn] 500 mg PO BID PRN #20 tab 07/15/18 Cefadroxil Hydrate [Duricef] 500 mg PO BID #28 capsule 07/22/18 The following prescriptions were given: Cefadroxil Hydrate [Duricef] 500 mg PO BID #28 capsule Primary Care Physician: Ayush Paz MD [Primary Care Provider] - Please follow up with your Primary Care Physician in: one week Test Results: Test results from this visit will be discussed in further detail at your follow- up appointment, if applicable. Please Follow Up With: Sourav Haji MD When: one week Please Follow Up With: Peter Barakat MD When: 1-2 weeks Proposed Discharge Date: 07/22/18
--- NOTE | 2018-07-22 10:31 | PCM.DC.SUM ---
Discharge Date and Diagnosis Date of Admission: 07/18/18 Date of Discharge: 07/22/18 - Primary Discharge Diagnosis Active and Suspected Problems Bursitis, knee (Acute) Cellulitis (Acute) Obesity (Acute) Left knee cellulitis (Acute) Hospital Course and Treatment Imaging Results: Diagnostic Data Abdomen X-Ray 07/20/18 14:00 IMPRESSION: 1. Nonspecific bowel gas pattern. No free gas. 2. Multilevel degenerative changes of the spine as well as S-shaped thoracic scoliosis grossly unchanged. Electronically Signed: Noel Dewey MD at 14:36 EDT , Service support , orthopedics- Dr Sourav Haji Infectious Disease- Dr Keven Barakat Procedures: EGD Summary of Care Provided: The patient is a 48 year old M with a past medical history of left lower extremity cellulitis, obesity and hypertension was admitted with complaint of left knee swelling had gone on for a few days with assisted trauma. He had increased swelling, redness and pain in his left knee. X-ray of the knee done showed subcutaneous edema. He was placed on Keflex and discharged home initially but pain worsened at home with increased redness with erythema spreading proximally and distally from the knee. There was no drainage and he had had some assisted chills at home. He came into the ED where he had no fever or leukocytosis. He was admitted and managed for left knee cellulitis and prepatellar bursitis. He was started on IV Zosyn and IV vancomycin. Infectious disease and orthopedic surgery were consulted. He had knee aspiration done by orthopedics. ID reviewed patient and there was a concern for septic arthritis. Antibiotics were narrowed to vancomycin and ceftriaxone. Cultures of the synovial fluid grew Staphylococcus aureus. Patient remained stable and had drainage of knee swelling twice by orthopedics. He was discharged home on Duricef 500 mg twice daily for 2 weeks on 07/22/2018. He was also given a script for PO aspirin 81mg bid per orthopedics for DVT prophylaxis. He is to follow-up with his PCP, orthopedic surgeon and infectious disease doctor. Patient seen and examined prior to discharge. He had no complaints. Pain was well controlled. Review of systems was otherwise negative. Labs and vitals reviewed. Home medication reviewed and reconciled. o.e: Vital Signs Height 5 ft 10 in Weight: 254 lb 3.088 oz Weight in Pounds 254.2 lbs Pulse Ox 98 Temperature 97.4 F Pulse Rate 62 Respiratory Rate 18 Blood Pressure 143/102 Blood Pressure Position Sitting [] General: Alert, Oriented x3, Cooperative, No apparent distress HEENT: Atraumatic, PERRLA, EOMI, Normocephalic Oral: Moist Mucosa Neck: Supple, No JVD, Negative Carotid Bruits Lungs: Clear to auscultation, Normal air movement, No rhonchi, No wheeze, No rales Cardiovascular: Regular rate, Regular Rhythm, Normal S1, Normal S2, No murmurs Abdomen: Bowel Sounds Present, Soft, Non Tender, Non-Distended, No Hepato-splenomegaly Extremities: - - left knee wrapped in CURT bandage. Skin: No rashes, No breakdown Musculoskeletal: No Tenderness to Palpation of Joints or Extremities Neurological: Cranial nerves II-XII grossly intact, Neuro grossly intact Psych/Mental Status: Normal Affect, Appropriate, Alert and oriented to time, place, person, mood and affect Plan as above. - Physical Exam Vital Signs Temp Pulse Resp BP Pulse Ox 97.4 F L 62 18 143/102 H 98 07/22/18 08:11 07/22/18 08:11 07/22/18 08:11 07/22/18 08:11 07/22/18 08:11 Oxygen Delivery Method Room Air Weight: 254 lb 3.088 oz Body Mass Index (BMI) 36.4 Intake and Output for Last 24 Hours 07/20/18 07/21/18 07/22/18 23:59 23:59 23:59 Intake Total 3549 / 3549 239 / 239 Balance / 3549 / 3549 239 / 239 Microbiology Past 72 Hours 07/19/18 19:00 Gram Stain - Final Fluid - Synovial (joint) Body Fluid Culture - Final Staphylococcus aureus Laboratory Tests Past 24 Hrs 07/21/18 07/22/18 07/22/18 21:53 06:31 06:31 WBC 8.1 RBC 4.11 L Hgb 12.5 L Hct 37.6 L MCV 91.5 MCH 30.4 MCHC 33.2 RDW 12.1 RDW Differential 39.8 Plt Count 253 MPV 8.4 Immature Gran % (Auto) 2.700 H Neut % (Auto) 61.5 Lymph % (Auto) 21.8 [place] % (Auto) 8.6 Eos % (Auto) 4.8 Baso % (Auto) 0.6 Absolute Neuts (auto) 5.0 Absolute Lymphs (auto) 1.77 Total Counted Not Reportable Diff Path Review May foll Sodium 139 Potassium 4.4 Chloride 105 Carbon Dioxide 31.0 Anion Gap 3 L BUN 12 Creatinine 0.91 Estim Creat Clear Calc 100.27 Est GFR (MDRD) Af Amer 114 Est GFR (MDRD) Non-Af 94 BUN/Creatinine Ratio 13.2 Glucose 93 Calcium 8.4 L Vancomycin Trough 10.1 Discharge Diet: Low fat/ Low Cholesterol Discharge Activity: Return to Normal Activity Weight Bearing Status: Weight bearing as tolerated Call your doctor if your incision/area has: Continuous Slow Oozing, Increased Pain/ Swelling, Increased Redness Call your doctor if you observe: Fever of 101 or Higher, Uncontrolled pain Home Medications: Medications to take at Discharge RX: Losartan/Hydrochlorothiazide [Losartan-Hctz 50-12.5 mg Tab] 1 tablet PO DAILY 05/17/17 Cefadroxil Hydrate [Duricef] 500 mg PO BID #28 capsule 07/22/18 RX: Aspirin 81 mg PO BID #60 tab.chew 07/22/18 Following Prescrptions Were Given to Patient: RX: Aspirin 81 mg PO BID #60 tab.chew Cefadroxil Hydrate [Duricef] 500 mg PO BID #28 capsule Primary Care Physician: Ayush Paz MD [Primary Care Provider] - Please follow up with your Primary Care Physician in: one week Please Follow Up With: Sourav Haji MD When: one week Please Follow Up With: Peter Barakat MD When: 1-2 weeks Patient Instructions: What Is Bursitis? Disposition: Home Minutes spent on discharge:: 40 Patient Condition:: Stable Medical Necessity - Tobacco Use Smoking Status: Never smoker Tobacco Use: Secondhand Meaningful Use Info Meaningful Use Diagnoses (Choose all that apply): None applicable Code Visit Inpatient E&M: 71598 Disch Hosp
--- NOTE | 2018-07-22 11:43 | PCM.PN.ORT ---
Patient Problems: Active and Suspected Problems Bursitis, knee (Acute) Cellulitis (Acute) Obesity (Acute) Left knee cellulitis (Acute) Subjective: Patient states his knee feels much better. Denies chest pain or shortness of breath. Denies calf pain or swelling. Planning on discharge to home later today. Stands importance of taking his antibiotics. Seen with his present Objective: Left knee Jer wrap was removed. There is some redness at the anterior knee. There is no warmth. There is no fluctuance within his prepatellar bursa. There is no obvious knee effusion. His knee motion is 0-110 degrees. No calf pain or swelling. Negative Homans sign. Erythema at the leg and thigh have resolved. Notes from hospitalist service reviewed. And discharged today Vital signs and laboratory work reviewed - Physical Exam Vital Signs Temp Pulse Resp BP Pulse Ox 97.4 F L 62 18 143/102 H 98 07/22/18 08:11 07/22/18 08:11 07/22/18 08:11 07/22/18 08:11 07/22/18 08:11 Oxygen Delivery Method Room Air Weight: 115.3 kg Body Mass Index (BMI) 36.4 Intake and Output for Last 24 Hours 07/20/18 07/21/18 07/22/18 23:59 23:59 23:59 Intake Total 90 / 3549 / 3549 239 / 239 Balance 90 / 90 3549 / 3549 239 / 239 Microbiology Past 72 Hours 07/19/18 19:00 Gram Stain - Final Fluid - Synovial (joint) Body Fluid Culture - Final Staphylococcus aureus Laboratory Tests Past 24 Hrs 07/21/18 07/22/18 07/22/18 21:53 06:31 06:31 WBC 8.1 RBC 4.11 L Hgb 12.5 L Hct 37.6 L MCV 91.5 MCH 30.4 MCHC 33.2 RDW 12.1 RDW Differential 39.8 Plt Count 253 MPV 8.4 Immature Gran % (Auto) 2.700 H Neut % (Auto) 61.5 Lymph % (Auto) 21.8 [place] % (Auto) 8.6 Eos % (Auto) 4.8 Baso % (Auto) 0.6 Absolute Neuts (auto) 5.0 Absolute Lymphs (auto) 1.77 Total Counted Not Reportable Diff Path Review May foll Sodium 139 Potassium 4.4 Chloride 105 Carbon Dioxide 31.0 Anion Gap 3 L BUN 12 Creatinine 0.91 Estim Creat Clear Calc 100.27 Est GFR (MDRD) Af Amer 114 Est GFR (MDRD) Non-Af 94 BUN/Creatinine Ratio 13.2 Glucose 93 Calcium 8.4 L Vancomycin Trough 10.1 Medical Necessity - Tobacco Use Smoking Status: Never smoker Tobacco Use: Secondhand Assessment/Plan All Active Problems Bursitis, knee (Acute) Cellulitis (Acute) Obesity (Acute) Left knee cellulitis (Acute) Left knee septic prepatellar bursitis, staph aureus , cellulitis: He understands that infection can be limb or life-threatening. No signs of septic knee joint. Okay for discharge to home on oral antibiotics as outlined by infectious disease service. he understands I am planning to treat this nonoperatively if possible. No guarantees were stated or implied. Patient will take oral antibiotics. I did recommend aspirin 81 mg once or twice a day for DVT prevention. When elevating the knee, compressive wrap. Weightbearing as tolerated. Okay to shower. We will see him in the office next week. This note was generated with [employer] dictation software. It may contain incorrect words, spelling, and punctuation that were not noted in checking the note before signing.
[2018-07-24 12:05] LABS: Pathologist Review Reviewed
== END 2018-07-22 12:05 | disposition home or self-care (01) | DRG 558 ==
LOC: ED 16:25 → MS2 18:36
PROVIDERS: Internal Medicine; Orthopaedic Surgery; Physician Assistant; Admitting Provider Internal Medicine; Emergency Provider Emergency Medicine; Family Provider Family Medicine; PCP Family Medicine; Referring Provider Internal Medicine; Visit Provider Student in an Organized Health Care Education/Training Program
DX: M71.162 Other infective bursitis, left knee (principal); L03.116 Cellulitis of left lower limb; B95.61 Methicillin susceptible Staphylococcus aureus infection as the cause of diseases classified elsewhere; I10 Essential (primary) hypertension; E66.9 Obesity, unspecified; Z68.36 Body mass index [BMI] 36.0-36.9, adult
CPT/HCPCS: 36415; 74019; 80048; 80202; 83735; 85025; 85027; 85652; 86140; 87040; 87070; 87075; 87077; 87186; 87205; 87641; 89060; 97802; 99284; J7030; J7040; A4216; J0696

== ENCOUNTER → 2021-04-08 08:30 | Outpatient (CLI) | payer BC, SELFPAY ==
--- NOTE | 2021-04-08 09:07 | EKG12_ITS ---
Test Reason : PRE-OP Blood Pressure : / mmHG Vent. Rate : 073 BPM Atrial Rate : 073 BPM P-R Int : 172 ms QRS Dur : 106 ms QT Int : 406 ms P-R-T Axes : 046 006 066 degrees QTc Int : 447 ms Normal sinus rhythm Normal ECG Confirmed by HALINA REYES, PEREZ ([id number]), medical transcription editor FAY WILLIAM ([id number]) on 04/09/2021 8:27:54 AM Referred By: Niranjan Mota Confirmed By:PEREZ MEADE MD
[2021-04-08 09:15] LABS: Hematocrit 39.2 % (40-54); Hemoglobin 13.7 g/dL (13.0-16.5); Mean Corp Hgb Conc 34.9 g/dL (32-36); Mean Corpuscular Hgb 31.2 pg (27.0-32.0); Mean Corpuscular Volume 89.3 fL (80-94); Mean Platelet Vol. 8.5 fl (6.2-12.0); Platelet Count 168 K/mm3 (150-450); RBC Distribution Width CV 12.6 % (11.6-14.6); RBC Distribution Width SD 41.1 fl (35.1-43.9); Red Blood Count 4.39 M/mm3 (4.6-6.2); White Blood Count 5.8 K/mm3 (4.4-11.0)
[2021-04-08 09:42] LABS: Anion Gap 5 (5-15); BUN 19 mg/dL (7-18); Calcium,Total 9.1 mg/dL (8.5-10.1); Chloride 105 mmol/L (98-107); Creatinine, Serum 1.12 mg/dL (0.70-1.30); EST Glomerular Filtration Rate 73 mL/min (>60); Est Glom Filt Rate - Afr Amer 88 mL/min (>60); Glucose 116 mg/dL (74-106); Potassium 4.2 mmol/L (3.5-5.1); Sodium Level 141 mmol/L (136-145)
[2021-04-08 09:52] LABS: Hemoglobin A1c 5.5 % (3.8-5.6)
== END ==
PROVIDERS: PCP Family Medicine; Referring Provider Orthopaedic Surgery; Visit Provider Orthopaedic Surgery
DX: Z01.810 Encounter for preprocedural cardiovascular examination (principal)
CPT/HCPCS: 36415; 80048; 83036; 85027; 93005

== ENCOUNTER → 2021-04-10 07:11 | Outpatient (CLI) | payer BC, SELFPAY ==
--- NOTE | 2021-04-10 07:16 | CT_ITS ---
STUDY: CT LEFT LOWER EXTREMITY WITHOUT CONTRAST REASON FOR EXAM: Left knee osteoarthritis, surgical planning. TECHNIQUE: Transaxial CT imaging of the lower extremity was performed. Coronal and sagittal images were reformatted. Individualized dose optimization techniques were used for this CT. COMPARISON: Radiographs 07/08/2018. FINDINGS: Knee: There are marginal osteophytes with preservation of joint space of the medial femorotibial compartment. There are marginal osteophytes with preservation joint space of the lateral femorotibial compartment. There are marginal osteophytes and mild joint space narrowing the lateral aspect of the patellofemoral compartment (axial image 27). Normal proximal tibiofibular articulation. There are bone islands in the proximal tibial diaphysis (coronal reconstructions 40, 41, 48). There is a small to moderate-sized joint effusion. The quadriceps tendon is grossly normal. The patellar tendon is grossly normal. Normal Hoffa''s fat pad. There are intra-articular bodies in the suprapatellar recess (sagittal reconstructions 37-43), at the posterior aspect of the medial femorotibial compartment (sagittal reconstructions 37, 38) and anterior to the medial tibial plateau (sagittal reconstruction 41). There is mild vascular calcification. Hip: There is arthrosis of the left hip with marginal osteophytes and joint space narrowing (coronal reconstruction 69). Ankle: There are osteochondral lesions of the medial and lateral talar dome (coronal reconstructions 25-28). There is an intra-articular body at the lateral aspect the tibiotalar articulation (coronal reconstructions 26, 27). Normal posterior subtalar and talonavicular articulations. There are posterior and plantar calcaneal enthesophytes. CT/Extremity Lower without Contra IMPRESSION: Left knee osteoarthritis. Electronically Signed: Jean Marie Cai MD at 14:04 EST Tel , Service support ,
== END ==
PROVIDERS: PCP Family Medicine; Referring Provider Orthopaedic Surgery; Visit Provider Orthopaedic Surgery
DX: M17.0 Bilateral primary osteoarthritis of knee (principal)
CPT/HCPCS: 73700

== ENCOUNTER → 2021-04-13 13:56 | Outpatient (CLI) | payer BC, SELFPAY | PROVIDERS: PCP Family Medicine; Referring Provider Orthopaedic Surgery; Visit Provider Orthopaedic Surgery | DX: Z11.59 Encounter for screening for other viral diseases (principal) | CPT/HCPCS: 87635; C9803; U0005; U0003 ==

== ENCOUNTER → 2021-04-15 | Outpatient (CLI) | payer BC, SELFPAY ==
--- NOTE | 2021-04-15 08:40 | BON_PTH ---
PATIENT: LANG KNXO LOC: [facility] U#:[id number] AGE/SX: 50/M ROOM: RE04/15/[address]: Dr. Niranjan Mota DO : 1970 BED: DIS: 04/15/2021 SPEC #: [id number] RECD: 04/15/21 15:00 STATUS: UGO REQ #: [id number] LEONEL: 04/15/21 08:[address]: Niranjan Mota DEPT: SURGICAL PATHOLOGY RECD BY: Kylee Calabrese ENTERED: 04/16/21 09:16 SP TYPE: Bone OTHR DR: Dr. Ayush Paz MD [facility] Tissues: Knee, NOS Procedures: Decalcification bone/plaque Surgery Specimen Level IV HEADER OPERATION: Robotic assisted left total knee arthroplasty PRE-OP DIAGNOSIS: Osteoarthritis left knee TISSUE SUBMITTED: Bone left knee MICROSCOPIC DIAGNOSIS Bone and tissue of left knee, total knee resection: Severe degenerative joint disease. Mild synovial hyperplasia. AM:geovanni 04/22/2021 MICROSCOPIC DESCRIPTION Slides are reviewed. GROSS DESCRIPTION Received is one container designated bone left knee. The specimen consists of multiple fragments of browne-yellow bone measuring in aggregate 16 x 14 x 1.5 cm. Also in the specimen container are multiple fragments of yellow-white soft tissue measuring in aggregate 12 x 9 x 2.5 cm. A number of bony fragments contain articular surfaces consistent with tibial plateau and femoral condyle and displaying prominent osteophyte formation, eburnation, and bone erosion. Molded Goods Operator sections are submitted in two cassettes as follows: 1 - soft tissue, 2 - bone after decalcification. / AM:geovanni 04/16/21 TC:5 [facility]: [id number], [id number]
== END | disposition home or self-care (01) ==
LOC: LABSPEC 15:40
PROVIDERS: PCP Family Medicine; Visit Provider Orthopaedic Surgery
DX: M17.12 Unilateral primary osteoarthritis, left knee (principal)
CPT/HCPCS: 88305; 88311

== ENCOUNTER 2021-07-02 07:43 | Outpatient (CLI) | payer BC, SELFPAY ==
--- NOTE | 2021-07-02 07:50 | CT_ITS ---
STUDY: CT RIGHT LOWER EXTREMITY WITHOUT CONTRAST REASON FOR EXAM: Right knee osteoarthritis, surgical planning. TECHNIQUE: Transaxial CT imaging of the lower extremity was performed. Coronal and sagittal images were reformatted. Individualized dose optimization techniques were used for this CT. COMPARISON: None. FINDINGS: Knee: There are marginal osteophytes, subchondral eburnation and mild joint space narrowing of the medial femorotibial compartment (coronal reconstruction 38). There are small marginal osteophytes with preservation of joint space of the lateral femorotibial compartment. There are marginal osteophytes with preservation of joint space of the patellofemoral compartment. There is a terab-ip-[id number] sized joint effusion with intra-articular bodies in the suprapatellar recess (sagittal reconstructions 37-42). There is arthrosis of the proximal tibiofibular articulation (coronal reconstruction 49). There is mild vascular calcification. Hip: There are marginal osteophytes of the femoral head, mild joint space narrowing and subchondral cystic change of the superior acetabulum (inversion recovery coronal images 60, 61). There is a herniation pit in the lateral femoral head/neck junction (coronal reconstruction 64). Ankle: Normal tibiotalar, posterior subtalar, talonavicular and calcaneocuboid articulations. CT/Extremity Lower without Contra IMPRESSION: Right knee osteoarthritis. Electronically Signed: Jean Marie Cai MD at 14:59 EST ,
== END 2021-07-02 23:59 | disposition home or self-care (01) ==
PROVIDERS: PCP Family Medicine; Referring Provider Orthopaedic Surgery; Visit Provider Orthopaedic Surgery
DX: M17.11 Unilateral primary osteoarthritis, right knee (principal)
CPT/HCPCS: 73700

== ENCOUNTER 2021-07-10 12:16 | Outpatient (CLI) | payer BC, SELFPAY ==
--- NOTE | 2021-07-10 12:18 | EKG12_ITS ---
Test Reason : PRE OP Blood Pressure : / mmHG Vent. Rate : 072 BPM Atrial Rate : 072 BPM P-R Int : 170 ms QRS Dur : 096 ms QT Int : 402 ms P-R-T Axes : 042 029 060 degrees QTc Int : 440 ms Normal sinus rhythm Normal ECG Confirmed by LAURA REYES, JORGE ([id number]), editor book FAY WILLIAM ([id number]) on 07/13/2021 11:02:35 AM Referred By: Carlos Huang Confirmed By:JORGE SANCHEZ MD
[2021-07-10 12:25] LABS: Absolute Lymphocyte Count 1.73 X10^3/uL (0.83-4.51); Absolute Neutrophil Count 3.8 X10^3/uL (2.0-7.7); Basophil# 0.04 X10^3/uL; Basophil% 0.6 % (0-1); Eosinophil# 0.22 X10^3/uL; Eosinophils% 3.4 % (0-5); Hematocrit 43.1 % (40-54); Lymphocyte # 1.73 X10^3/ul (0.83-4.51); Lymphocyte % 26.8 % (19-41); Mean Corp Hgb Conc 34.8 g/dL (32-36); Mean Corpuscular Hgb 30.7 pg (27.0-32.0); Mean Corpuscular Volume 88.1 fL (80-94); Mean Platelet Vol. 9.4 fl (6.2-12.0); Monocyte% 9.3 % (0-10); NRBC Flagged by Analyzer 0 % (0-5); Neutrophil # 3.84 X10^3/uL (2.7-7.7); Neutrophil % 59.4 % (47-70); Platelet Count 211 K/mm3 (150-450); RBC Distribution Width CV 13.5 % (11.6-14.6); RBC Distribution Width SD 43.2 fl (35.1-43.9); Red Blood Count 4.89 M/mm3 (4.6-6.2); White Blood Count 6.5 K/mm3 (4.4-11.0)
[2021-07-10 12:44] LABS: Hemoglobin A1c 5.6 % (3.8-5.6)
[2021-07-10 13:19] LABS: Anion Gap 6 (5-15); BUN 19 mg/dL (7-18); BUN/Creat Ratio 17.6 RATIO (10-20); Calcium,Total 9.3 mg/dL (8.5-10.1); Chloride 102 mmol/L (98-107); Creatinine, Serum 1.08 mg/dL (0.70-1.30); EST Glomerular Filtration Rate 76 mL/min (>60); Est Glom Filt Rate - Afr Amer 92 mL/min (>60); Glucose 105 mg/dL (74-106); Potassium 3.6 mmol/L (3.5-5.1); Sodium Level 138 mmol/L (136-145)
== END 2021-07-10 23:59 | disposition home or self-care (01) ==
PROVIDERS: PCP Family Medicine; Referring Provider Physician Assistant; Visit Provider Physician Assistant
DX: Z01.810 Encounter for preprocedural cardiovascular examination (principal); Z01.818 Encounter for other preprocedural examination; Z20.822 Contact with and (suspected) exposure to COVID-19
CPT/HCPCS: 36415; 80048; 83036; 85025; 87426; 93005; C9803

== ENCOUNTER 2021-07-17 15:33 | Outpatient (CLI) | payer BC, SELFPAY ==
--- NOTE | 2021-07-17 08:30 | KNEE_PTH ---
PATIENT: LANG KNOX [facility] U#:[id number] AGE/SX: 51/M ROOM: RE07/17/[address]: Dr. Niranjan Mota DO : 1970 BED: DIS: 07/17/2021 SPEC #: [id number] RECD: 07/17/21 15:19 STATUS: UGO REBridgett #: [id number] LEONEL: 07/17/21 08:[address]: Niranjan Mota DEPT: SURGICAL PATHOLOGY RECD BY: Kylee Calabrese ENTERED: 07/20/21 08:36 SP TYPE: TOTAL KNEE OTHR DR: Dr. Ayush Paz MD Tissues: Knee, NOS Procedures: Decalcification bone/plaque Surgery Specimen Level IV HEADER OPERATION: Right total knee arthroplasty with robotic assistance PRE-OP DIAGNOSIS: Unilateral primary osteoarthritis right knee TISSUE SUBMITTED: Bone and soft tissue right knee MICROSCOPIC DIAGNOSIS Bone and tissue of right knee, total knee resection: Severe degenerative joint disease. AM:geovanni 07/23/2021 MICROSCOPIC DESCRIPTION Slides are reviewed. GROSS DESCRIPTION Received is one container designated bone and soft tissue right knee. The specimen consists of multiple fragments of browne-yellow bone measuring in aggregate 12 x 10 x 3 cm. Also in the specimen container are multiple fragments of yellow-white soft tissue measuring in aggregate 11 x 10 x 3 cm. A number of bony fragments contain articular surfaces consistent with tibial plateau and femoral condyle and displaying prominent osteophyte formation, eburnation, and bone erosion. Home Specialist sections are submitted in two cassettes as follows: 1 - soft tissue, 2 - bone after decalcification. / SJ:geovanni 07/20/2021 TC:5 [facility]: [id number], [id number]
== END 2021-07-17 23:59 | disposition home or self-care (01) ==
LOC: LABSPEC 15:34
PROVIDERS: PCP Family Medicine; Visit Provider Orthopaedic Surgery
DX: M17.11 Unilateral primary osteoarthritis, right knee (principal)
CPT/HCPCS: 88305; 88311

== ENCOUNTER 2023-01-26 15:20 | Emergency (ER) | payer BC, SELFPAY ==
[2023-01-26 15:24] VITALS: BP 156/98; PULSE 63; RESP 16; TEMP 36.4; O2SAT 100; BMI 39.6
[2023-01-26] MEDS: Ondansetron ODT 4 MG Tablet PO (15:59)
[2023-01-26] MEDS: Meclizine HCl 25 MG Tablet PO (16:00)
--- NOTE | 2023-01-26 16:00 | EDS_ITS ---
HPI <HEATHER Mcnulty - Last Filed: 01/26/23 17:31> History of Present Illness Chief Complaint: Dizziness Narrative Narrative: Patient presenting today with dizziness that started around 12 PM this afternoon. He reports that he bent over to picker tender a box and had a sudden onset of dizziness that he describes as the room spinning. He reports that he felt nauseous and had an episode of vomiting. He reports that every time he tries to lay down his symptoms began. He feels fine if he remains in an upright position. He denies any history of vertigo, recent congestion, recent illness, fever, chills, chest pain, shortness of breath. PMH includes hypertension. PFSH <HEATHER Mcnulty - Last Filed: 01/26/23 17:31> PFSH Medical History FH: total knee replacement Left knee cellulitis Home Medications losartan 50 mg-hydrochlorothiazide 12.5 mg tablet 1 tab PO DAILY 05/17/17 [History Last Taken 07/18/18] meclizine 25 mg tablet 25 mg PO 4X/DAY PRN PRN Dizziness #20 tabs 01/26/23 [Rx Last Taken Unknown] ondansetron 4 mg disintegrating tablet 4 mg PO Q8H PRN PRN Nausea #10 tabs 01/26/23 [Rx Last Taken Unknown] Allergy/AdvReac Type Severity Reaction Status Date / Time adhesive tape Allergy Rash Verified 01/26/23 15:24 lisinopril AdvReac COUGH Verified 01/26/23 15:24 Social History Smoking Status: Never smoker ROS <HEATHER Mcnulty - Last Filed: 01/26/23 17:31> ROS ED Constitutional Constitutional ED: Denies chills or fever(s) Eyes Eyes: Denies change in vision Cardiovascular Cardiovascular: Denies chest pain or palpitations Respiratory/Chest Respiratory/Chest: Denies cough or dyspnea Gastrointestinal Gastrointestinal: Reports nausea and vomiting; Denies abdominal pain Musculoskeletal Musculoskeletal: Denies arthralgias or myalgias Integumentary Denies rash Neurologic Neurologic: Reports dizziness; Denies headache(s) or weakness EXAM <HEATHER Mcnulty - Last Filed: 01/26/23 17:31> Physical Exam Const Vital Signs: 01/26/23 15:24 01/26/23 15:37 01/26/23 16:56 Temperature 97.5 F L Temperature Source Temporal Pulse Rate 63 53 L Respiratory Rate 16 16 Respiratory Effort Normal Respiratory Pattern Normal Blood Pressure 156/98 H 156/93 H Blood Pressure Mean 117 Pulse Ox 100 98 Positive well nourished, well developed and no apparent distress General Appearance ED: well developed HEENT Reports normocephalic, head/scalp atraumatic and TM's clear Tympanic Membrane ED: Yes TM's clear bilateral Mouth ED: Yes moist mucous membranes normal Eyes PERRL and EOMs intact bilaterally Neck full ROM and supple Chest Wall inspection of chest normal Resp normal respiratory effort and clear to auscultation bilaterally Cardio regular rate and regular rhythm GI soft to palpation, non-tender, non-distended and no masses Back/Spine normal ROM and normal to inspection Extremity normal to inspection and full ROM Neuro oriented x3, CN's II-XII intact bilaterally, moves all extremities, no focal motor deficits and no sensory deficits noted Sensorium / Orientation: awake and alert Speech: speech normal Motor Exam: strength 5/5 throughout Coordination: tetmpb-df-[id number] test normal, ndsj-du-[id number] test normal and rapid alternating movements of the distal upper extremity normal Psych mental status grossly normal and thought process normal Skin no rashes or lesions noted and no wounds <Dr. Elly Hernandez DO - Last Filed: 01/27/23 15:14> Physical Exam Const Vital Signs: 01/26/23 15:24 01/26/23 15:37 01/26/23 16:56 Temperature 97.5 F L Temperature Source Temporal Pulse Rate 63 53 L Respiratory Rate 16 16 Respiratory Effort Normal Respiratory Pattern Normal Blood Pressure 156/98 H 156/93 H Blood Pressure Mean 117 Pulse Ox 100 98 MDM <HEATHER Mcnulty - Last Filed: 01/26/23 17:31> [facility] Narrative Medical decision making narrative: Patient presenting due to vertigo that started this afternoon when he bent over to pick something up. He is well-appearing and in no acute distress, vitals unremarkable aside from elevated blood pressure. Patient's neurological exam is WNL, NIH is 0. I did perform a [place]-Hallpike and it was positive on the left side, patient had horizontal nystagmus. Patient's symptoms are consistent with BPPV, I do not feel that this is a central cause of vertigo. He was given meclizine and Zofran here. On reexamination he reports improvement of his symptoms. He does see Dr. Raya, I have encouraged him to follow-up with him. I have given him education on how to perform the Vicki maneuver. He has been given a prescription for meclizine. He will be discharged home in stable condition and is comfortable with plan. He has been given return instructions. <Dr. Elly Hernandez, DO - Last Filed: 01/27/23 15:14> [facility] Narrative Medical decision making narrative: Patient presenting due to vertigo that started this afternoon when he bent over to pick something up. He is well-appearing and in no acute distress, vitals unremarkable aside from elevated blood pressure. Patient's neurological exam is WNL, NIH is 0. I did perform a [place]-Hallpike and it was positive on the left side, patient had horizontal nystagmus. Patient's symptoms are consistent with BPPV, I do not feel that this is a central cause of vertigo. He was given meclizine and Zofran here. On reexamination he reports improvement of his symptoms. He does see Dr. Raya, I have encouraged him to follow-up with him. I have given him education on how to perform the Vicki maneuver. He has been given a prescription for meclizine. He will be discharged home in stable c ondition and is comfortable with plan. He has been given return instructions. I have personally performed a face to face assessment of the patient and have reviewed the PHILIP Note. I performed a substantive portion of the visit including all aspects of the following. My sandoval findings include: History is patient is a 52 year old male presenting with sudden onset of vertigo after leaning forward. His physical exam is most consistent with BPPV likely from the left ear. Given meclizine and zofran with improvement of symptoms. No other neuro symptoms and otherwise normal cerebellar exam. I do not think imaging or labs are indicated. Given ENT follow up and Rx for meclizine. Counseled on return precautions. Other additions or changes: [None] Discharge Plan Triage Chief Complaint: Dizziness ED Midlevel Provider: Guerda Tracey ED Provider: Elly Hernandez Dx/Rx/DC Orders Clinical Impression: Benign paroxysmal positional vertigo Instructions: ED BPV Vertigo Prescriptions: New meclizine 25 mg tablet 25 mg PO 4X/DAY PRN PRN (Reason: Dizziness) Qty: 20 0RF ondansetron 4 mg tablet,disintegrating 4 mg PO Q8H PRN PRN (Reason: Nausea) Qty: 10 0RF No Action losartan-hydrochlorothiazide 50-12.5 tablet 1 tab PO DAILY Patient Comments: Primary Care Provider: Ayush Paz Referrals: Nick Raya MD [Med Staff - Courtesy Staff] - 3-5 Days Ayush Paz MD [Primary Care Provider] - Activity Restrictions/Additional Instructions: Follow-up with ENT. Perform the Vicki maneuver, return for any worsening of your symptoms Disposition Disposition: Home, Self Care Discharge Date/Time: 01/26/23 17:01
[2023-01-26 16:56] VITALS: BP 156/93; PULSE 53; RESP 16; O2SAT 98
== END 2023-01-26 17:01 | disposition home or self-care (01) ==
PROVIDERS: Emergency Provider Emergency Medicine; PCP Family Medicine; Visit Provider Emergency Medicine
DX: H81.12 Benign paroxysmal vertigo, left ear (principal); I10 Essential (primary) hypertension; Z79.899 Other long term (current) drug therapy
CPT/HCPCS: 99283